=== PATIENT | female | born 1930 | race Caucasian/White ===

== ENCOUNTER → 2018-09-09 | Outpatient (CLI) | payer MEDICARE ==
--- NOTE | 2018-09-12 10:02 | MM ---
Reason for exam: screening (asymptomatic). Last mammogram was performed 1 year ago. History: Patient is postmenopausal and has history of other cancer at age 75. Took estrogen for 18 years beginning at age 55. MG Screening Mammo w CAD Bilateral CC and MLO view(s) were taken. Prior study comparison: September 06, 2017, bilateral MG screening mammo w CAD. September 05, 2016, bilateral MG screening mammo w CAD. The breast tissue is heterogeneously dense. This may lower the sensitivity of mammography. There are benign appearing bilateral calcifications. There is a focal asymmetry in the central outer middle depth of the left breast which will require additional images. ASSESSMENT: Incomplete: need additional imaging evaluation, BI-RAD 0 RECOMMENDATION: Special view mammogram of the left breast. If lesion persists on supplemental views, image directed ultrasound is recommended. [facility] will attempt to contact patient to return for supplemental views and ultrasound if indicated.
== END | disposition home or self-care (01) ==
LOC: RADMAMWWP 13:14
PROVIDERS: ATTEND Family Medicine
DX: Z12.31 Encounter for screening mammogram for malignant neoplasm of breast (principal)
CPT/HCPCS: 77067

== ENCOUNTER → 2018-09-17 | Outpatient (CLI) | payer MEDICARE ==
--- NOTE | 2018-09-18 08:11 | MM ---
Reason for exam: additional evaluation requested from abnormal screening. Last mammogram was performed less than 1 month ago. History: Patient is postmenopausal and has history of other cancer at age 75. Took estrogen for 18 years beginning at age 55. Physical Findings: Nurse did not find any significant physical abnormalities on exam. MG 3D Work Up W/Cad LT Spot compression CC, spot compression ML, and LM view(s) were taken of the left breast. Prior study comparison: September 09, 2018, bilateral MG screening mammo w CAD. September 06, 2017, bilateral MG screening mammo w CAD. Finding: There is an equal density (isodense), obscured round mass located 5 cm from the nipple in the 3 o'clock middle position of the left breast. New finding since September 09, 2018 and September 06, 2017. These results were verbally communicated with the patient and result sheet given to the patient on 09/17/18. ASSESSMENT: Incomplete: need additional imaging evaluation, BI-RAD 0 RECOMMENDATION: Ultrasound of the left breast.
--- NOTE | 2018-09-18 08:12 | USB ---
Reason for exam: additional evaluation requested from abnormal screening. History: Patient is postmenopausal and has history of other cancer at age 75. Took estrogen for 18 years beginning at age 55. US Breast Workup Limited LT Left limited breast ultrasound including focal area of concern, retroareolar and axilla demonstrates a 0.4 x 0.4 x 0.3cm node at 3 o'clock and an axilla node. These results were verbally communicated with the patient and result sheet given to the patient on 09/17/18. ASSESSMENT: Benign, BI-RAD 2 RECOMMENDATION: Return to routine screening mammogram schedule for both breasts.
== END | disposition home or self-care (01) ==
LOC: RADMAMWWP 14:13
PROVIDERS: ATTEND Family Medicine
DX: R92.8 Other abnormal and inconclusive findings on diagnostic imaging of breast (principal)
CPT/HCPCS: 77065; 76642; G0279; 77061

== ENCOUNTER 2019-01-22 16:40 | Emergency (ER) | payer MEDICARE ==
[2019-01-22 16:49] VITALS: RESP 18; TEMP 98.1
[2019-01-22] MEDS ORDERED: MORPHINE SULFATE 2 MG/ML SYRINGE IVP STA (17:30)
--- NOTE | 2019-01-22 17:39 | ED ---
General Adult HPI - General Chief complaint: Fall Stated complaint: fall, shoulder pain Time Seen by Provider: 01/22/19 17:06 Source: patient, family, EMS, RN notes reviewed Mode of arrival: EMS Limitations: no limitations - History of Present Illness Initial comments: Chief complaint history of present illness this is an 88-year-old female who reports that she was on a treadmill. She wanted turn the speed of the treadmill down but she accidentally turned it up. She fell. He complains of pain from the right shoulder to her right wrist. She also presents with a swollen nose and mild epistaxis. She denies any head or neck pain or injury otherwise. Alert and oriented. - Related Data Home Medications Medication Instructions Recorded Confirmed ALPRAZolam 0.5 mg PO HS 03/23/15 01/22/19 Ascorbic Acid [Vitamin C] 500 mg PO DAILY 03/23/15 01/22/19 Aspirin 81 mg PO DAILY 03/23/15 01/22/19 Calcium Carbonate/Vitamin D3 1 cap PO DAILY 03/23/15 01/22/19 [Calcium 600 + Vit D Tablet] Cinnamon Bark [Cinnamon] 1,000 mg PO DAILY 03/23/15 01/22/19 Levothyroxine Sodium [Levoxyl] 75 mcg PO QAM 03/23/15 01/22/19 Metoprolol Tartrate 50 mg PO BID 03/23/15 01/22/19 Multivitamin with Iron [Daily 1 tab PO DAILY 03/23/15 01/22/19 Multivitamin with Iron] [place]-3 Fatty Acids/Fish Oil [Fish 1 cap PO DAILY 03/23/15 01/22/19 Oil 1,000 mg Softgel] Simvastatin 10 mg PO DAILY 03/23/15 01/22/19 amLODIPine BESYLATE [Amlodipine 5 mg PO QAM 03/23/15 01/22/19 Besylate] rOPINIRole HCL 0.5 mg PO DAILY 03/23/15 01/22/19 Ergocalciferol [Vitamin D2] 50,000 unit PO QMONTH 04/06/16 01/22/19 Ferrous Sulfate [Feosol] 325 mg PO DAILY 04/06/16 01/22/19 Furosemide [Lasix] 20 mg PO QAM 04/06/16 01/22/19 Omeprazole 20 mg PO 04/06/16 01/22/19 Allergies Allergy/AdvReac Type Severity Reaction Status Date / Time nitrofurantoin Allergy Rash/Hives Verified 01/22/19 18:09 [From Macrobid] nitrofurantoin Allergy Rash/Hives Verified 01/22/19 18:09 macrocrystalline [From Macrobid] adhesive AdvReac tears skin Verified 01/22/19 18:09 isosorbide AdvReac Rash/Hives Verified 01/22/19 18:09 mepivacaine HCl AdvReac Unknown Verified 01/22/19 18:09 [From Carbocaine] ofloxacin [From Floxin] AdvReac Hallucinati Verified 01/22/19 18:09 ons Review of Systems ROS Statement: Those systems with pertinent positive or pertinent negative responses have been documented in the HPI. Review of systems. Patient denies headache or neck pain she has a bruised nose looks like she had small amount of epistaxis. Denies chest pain shortness breath GI/ problems. Denies any neuro deficits. She does have a history of dementia. Patient is not on any blood thinners. Patient has pain to her right shoulder and right wrist area. The patient received morphine en route. And she received 2 mg morphine IV in the emergency room. All systems are reviewed. The patient's past medical problems significant for angina, CHF, diet-controlled diabetes, hyperlipidemia, hypertension, dementia, osteoarthritis, chronic renal disease, fragile skin. The patient's surgeries include appendectomy, 3 cardiac stents, hysterectomy, bilateral hips replaced. The patient's ALLERGIES include nitrofurantoin, adhesive, isosorbide, mepivacaine and ofloxacin. Nonsmoker nondrinker. Family history noncontributory ROS Other: All systems not noted in ROS Statement are negative. Past Medical History Past Medical History: Coronary Artery Disease (CAD), Cancer, Chest Pain / Angina, Heart Failure, Diabetes Mellitus, Hyperlipidemia, Hypertension, Memory Impairment, Osteoarthritis (OA), Renal Disease, Skin Disorder Additional Past Medical History / Comment(s): Diabetes type II-diet controlled, fragile skin, chronic kidney disease being monitored, sciatica, Giant Cell Ateritis, anemia, peripheral edema, skin cancer with removal, hypothyroid, RLS, DJD, osteopenia, some urinary incontinence. History of Any Multi-Drug Resistant Organisms: None Reported Past Surgical History: Appendectomy, Heart Catheterization With Stent, Hysterectomy, Joint Replacement, Orthopedic Surgery Additional Past Surgical History / Comment(s): 04/18/16 Total L hip arthroplasty anterior approach. Other surgical hx: Cataract Surgery maryam eyes, skin ca removed, 2010 heart stents x 3, RAÚL, temporal artery bx, total R hip arthroplasty, skin ca removal. Past Anesthesia/Blood Transfusion Reactions: No Reported Reaction Additional Past Anesthesia/Blood Transfusion Reaction / Comment(s): Pt states she has received blood in the past without reaction. Date of Last Stent Placement:: 2009 Past Psychological History: No Psychological Hx Reported Smoking Status: Never smoker Past Alcohol Use History: None Reported Past Drug Use History: None Reported - Past Family History Mother Family Medical History: CVA/TIA Additional Family Medical History / Comment(s): Mother of a CVA at the age of 83 yrs. Father Additional Family Medical History / Comment(s): 80's General Exam - General Exam Comments Initial Comments: General: The patient is awake and alert, patient accidentally turned up to speed of the treadmill that she was on causing her to fall. No apparent loss of consciousness. Family was at her side shortly thereafter. Vital signs shows temperature 98.1 pulse 59 respiratory rate 18 pulse ox 94% room air blood pressure 178/74. Eye: Pupils are equal, round and reactive to light, extra-ocular movements are intact; there is normal conjunctiva bilaterally. No signs of icterus. Ears, nose, mouth and throat: There are moist mucous membranes and no oral lesions. Small amount of epistaxis with mild ecchymosis to the bridge of the patient's nose. No evidence of any septal hematoma. Neck: The neck is supple, there is no tenderness, no pain with palpation or movement. Cardiovascular: There is a regular rate and rhythm. No murmur, rub or gallop is appreciated. Respiratory: Lungs are clear to auscultation, respirations are non-labored, breath sounds are equal. No wheezes, stridor, rales, or rhonchi. Gastrointestinal: Soft, non-distended, non-tender abdomen without masses or organomegaly noted. There is no rebound or guarding present. No CVA tenderness. Bowel sounds are unremarkable. Back: There is no tenderness to palpation in the midline. Musculoskeletal: Patient presents with complaint of pain to her right shoulder through the right arm. Range of motion is decreased secondary to pain. Patient had a sling applied by EMS. Neurovascular status to hands intact. No open wounds are noted. X-rays are pending. Neurological: CN II-XII intact, There are no obvious motor or sensory deficits. Full trauma exam from head to toe was performed. Her complaints are to her right arm and forearm. Especially to her right shoulder. Patient does have dementia Skin: Skin is warm and dry and no rashes or lesions are noted. Psychiatric: Cooperative, dementia Limitations: no limitations Course Vital Signs 01/22/19 01/22/19 01/22/19 16:42 18:20 19:21 Temperature 98.1 F Pulse Rate 59 L 76 77 Respiratory 18 18 18 Rate Blood Pressure 178/74 160/85 148/74 O2 Sat by Pulse 94 L 98 95 Oximetry 01/22/19 20:24 Temperature Pulse Rate 75 Respiratory 18 Rate Blood Pressure 152/90 O2 Sat by Pulse 94 L Oximetry Medical Decision Making - Medical Decision Making Medical decision making; this is an 88-year-old female here with family. The patient was on her treadmill. She states she accidentally turned it up faster rather than slower and fell. Resulting in a dislocated right shoulder. Patient also had an epistaxis with some ecchymosis to the bridge of her nose. There was no apparent loss of consciousness. The patient received pain medication via ambulance on the way in. She received 2 mg of morphine as well as IV Zofran because she became nauseated while in emergency room. Neurologically grossly intact no focal or lateralizing findings. No complaint of numbness or tingling to the hands. The patient is on aspirin but no other blood thinners. The patient's CT of the brain and cervical spine was done ;cerebral atrophy, no acute intracranial abnormality. Spondylotic changes in the vertebral spine. No fracture seen. Subluxation deformity of the c4 on c5 vertebral body as interpreted by Dr. Alonso. No old x-rays or CTs of the cervical spine are available to us for comparison. Strong possibility of severe degenerative changes in the cervical spine. Patient had no complaint of neck pain but she was still placed in soft collar. [place] collar is too big. Postreduction x-ray of the right shoulder shows the shoulder to be in the proper position. Radiograph of the forearm shows no evidence of acute fracture to the forearm or wrist. Awaiting radiologist's final impression I discussed the case with family. Inasmuch as we do not have a baseline for the amount of degenerative changes and subluxation she had prior to today's fall, the patient be evaluated by neurosurgery. I spoke with Dr. Beltran at the [facility] emergency room except the patient for transfer further evaluation. The patient will be transferred via ambulance. On emergency room the patient did vomit some coffee ground material. She did have epistaxis. Unknown if she swallowed blood from this or if she had pre- existing stomach problem. When asked if she has had black stool lately she said she has. She also states she's been on iron tablets. This was also mention advised to talk with Dr. Beltran. Emergency the patient received IV Protonix Disposition Clinical Impression: Dislocation of right shoulder joint, Nasal fracture, Cervical subluxation Disposition: OTHER INSTITUTION NOT DEFINED Condition: Serious Is patient prescribed a controlled substance at d/c from ED?: No Referrals: Giovanni Luke MD [Primary Care Provider] - 1-2 days Time of Disposition: 01:20 - Out of Hospital Transfer - Req. Specs Out of Hospital Transfer - Requested Specifics: Other Emergency Center ([facility])
[2019-01-22] MEDS ORDERED: ONDANSETRON 4 MG/2 ML VIAL IVP STA (18:14)
--- NOTE | 2019-01-22 18:31 | CT ---
EXAMINATION TYPE: CT brain bao farrar DATE OF EXAM: 01/22/2019 COMPARISON: None HISTORY: Fall from treadmill. Bruising and swelling to nose. CT DLP: 1320.5 mGycm Automated exposure control for dose reduction was used. TECHNIQUE: CT scan of the head and cervical spine are performed without contrast. FINDINGS: There is cerebral cortical atrophy. There is no mass effect nor midline shift. There is n o sign of intracranial hemorrhage. The calvarium is intact. There is a 5 mm anterior subluxation of C4 in relation to C5. There is also similar 4 mm retrolisthes is at C5-6. There is degenerative disc space narrowing from C4 to C7. There is multilevel hypertrophi c facet arthropathy. I see no acute fracture of the cervical spine. Skull base appears intact. IMPRESSION: Cerebral atrophy. No acute intracranial abnormality. Spondylotic changes in the cervical spine. No fracture seen. Subluxation deformity of the C5 vertebra l body.
--- NOTE | 2019-01-22 18:32 | XR ---
EXAMINATION TYPE: XR humerus RT DATE OF EXAM: 01/22/2019 COMPARISON: NONE HISTORY: Pain after fall TECHNIQUE: 4 views FINDINGS: There is anterior dislocation of the humeral head. I see no fracture line. Elbow joint appe ars intact. IMPRESSION: Anterior dislocation of the shoulder joint.
--- NOTE | 2019-01-22 19:27 | XR ---
EXAMINATION TYPE: XR forearm RT DATE OF EXAM: 01/22/2019 COMPARISON: NONE HISTORY: Pain. TECHNIQUE: Single view FINDINGS: A single view of the right forearm shows intact radius and ulna. Elbow joint and wrist join t appear grossly intact. I see no fracture. IMPRESSION: No fracture seen. Limited exam.
--- NOTE | 2019-01-22 19:30 | XR ---
EXAMINATION TYPE: XR shoulder limited RT DATE OF EXAM: 01/22/2019 COMPARISON: Today HISTORY: Postreduction TECHNIQUE: Single view FINDINGS: There is apparent anatomic reduction of the glenohumeral joint. No fracture line seen. Ther e is osteopenia. IMPRESSION: Anatomic reduction.
--- NOTE | 2019-01-22 19:35 | XR ---
EXAMINATION TYPE: XR wrist complete RT DATE OF EXAM: 01/22/2019 COMPARISON: NONE HISTORY: Wrist pain TECHNIQUE: 4 views FINDINGS: The carpal bones are intact. There is no evidence of fracture nor dislocation. There is ruben e narrowing and spurring at the first carpometacarpal joint. IMPRESSION: Osteoarthritis at the base of the thumb. No fracture seen.
[2019-01-22 20:26] VITALS: BP 152/90; PULSE 75
--- NOTE | 2019-01-23 04:49 | CDI ---
Documentation Clarification OP Dear Dr. Pablito Siu Please provide complete shoulder reduction note. Thank you, Matt Fry Animal Control Specialist If you have any questions, please contact Configuration Management Advisor at [phone] [facility]
== END 2019-01-22 20:50 | disposition other institution (70) ==
LOC: EC 16:40
DX: S43.004A Unspecified dislocation of right shoulder joint, initial encounter (principal); S02.2XXA Fracture of nasal bones, initial encounter for closed fracture; S13.150A Subluxation of C4/C5 cervical vertebrae, initial encounter; G31.9 Degenerative disease of nervous system, unspecified; M47.812 Spondylosis without myelopathy or radiculopathy, cervical region; I25.10 Atherosclerotic heart disease of native coronary artery without angina pectoris; I13.0 Hypertensive heart and chronic kidney disease with heart failure and stage 1 through stage 4 chronic kidney disease, or unspecified chronic kidney disease; N18.9 Chronic kidney disease, unspecified; I50.9 Heart failure, unspecified; D63.1 Anemia in chronic kidney disease; E78.5 Hyperlipidemia, unspecified; M19.90 Unspecified osteoarthritis, unspecified site; E03.9 Hypothyroidism, unspecified; G25.81 Restless legs syndrome; Z85.828 Personal history of other malignant neoplasm of skin; Z95.5 Presence of coronary angioplasty implant and graft; Z96.643 Presence of artificial hip joint, bilateral; Z79.82 Long term (current) use of aspirin; Z79.890 Hormone replacement therapy; Z79.899 Other long term (current) drug therapy; Z88.1 Allergy status to other antibiotic agents; Z91.048 Other nonmedicinal substance allergy status; Z88.8 Allergy status to other drugs, medicaments and biological substances; Z88.4 Allergy status to anesthetic agent; W17.89XA Other fall from one level to another, initial encounter; Y93.A1 Activity, exercise machines primarily for cardiorespiratory conditioning
CPT/HCPCS: 99285; 23650; 96374; 96375; 73020; 73060; 73090; 73110; 72125; 70450; J2405; J2270

== ENCOUNTER 2019-03-13 11:30 | Inpatient (IN) | payer MEDICARE ==
[2019-03-13] MEDS ORDERED: AZITHROMYCIN 500 MG in SODIUM CHLORIDE 0.9% 250 ML IVPB STA (12:24)
[2019-03-13] MEDS ORDERED: IPRATROPIUM-ALBUTEROL 3 ML NEB INHALATION STA (12:24)
--- NOTE | 2019-03-13 12:27 | ED ---
General Adult HPI - General Chief complaint: Shortness of Breath Stated complaint: Cough, fever Time Seen by Provider: 03/13/19 12:11 Source: patient, RN notes reviewed Mode of arrival: wheelchair Limitations: no limitations - History of Present Illness Initial comments: 88-year-old female presenting with 1 week history of cough and dyspnea. Patient's symptoms have progressed over the past one week. She initially just had a mild dry cough. She was seen by her primary care physician, suspected seasonal ALLERGIES. Placed on antitussive agent and Claritin. Symptoms have failed to improve. Today patient developed fever. Cough continues to be no nproductive. No history of COPD. She has previous history of congestive heart failure. Denies chest pain. Denies abdominal pain nausea or vomiting. - Related Data Home Medications Medication Instructions Recorded Confirmed Ascorbic Acid [Vitamin C] 500 mg PO DAILY 03/23/15 03/13/19 Aspirin 81 mg PO DAILY 03/23/15 03/13/19 Calcium Carbonate/Vitamin D3 1 cap PO DAILY 03/23/15 03/13/19 [Calcium 600 + Vit D Tablet] Cinnamon Bark [Cinnamon] 1,000 mg PO DAILY 03/23/15 03/13/19 Levothyroxine Sodium [Levoxyl] 75 mcg PO QAM 03/23/15 03/13/19 Metoprolol Tartrate 50 mg PO BID 03/23/15 03/13/19 Multivitamin with Iron [Daily 1 tab PO DAILY 03/23/15 03/13/19 Multivitamin with Iron] [place]-3 Fatty Acids/Fish Oil [Fish 1 cap PO DAILY 03/23/15 03/13/19 Oil 1,000 mg Softgel] Simvastatin 10 mg PO DAILY 03/23/15 03/13/19 amLODIPine BESYLATE [Amlodipine 5 mg PO QAM 03/23/15 03/13/19 Besylate] rOPINIRole HCL 0.5 mg PO DAILY 03/23/15 03/13/19 Ergocalciferol [Vitamin D2] 50,000 unit PO QMONTH 04/06/16 03/13/19 Ferrous Sulfate [Feosol] 325 mg PO DAILY 04/06/16 03/13/19 Furosemide [Lasix] 20 mg PO QAM 04/06/16 03/13/19 Omeprazole 20 mg PO HS 04/06/16 03/13/19 ALPRAZolam [Xanax] 0.5 mg PO DAILY PRN 03/13/19 03/13/19 Benzonatate [Tessalon Perles] 100 mg PO TID 03/13/19 03/13/19 Loratadine [Claritin] 10 mg PO BID 03/13/19 03/13/19 Allergies Allergy/AdvReac Type Severity Reaction Status Date / Time nitrofurantoin Allergy Rash/Hives Verified 03/13/19 12:29 [From Macrobid] nitrofurantoin Allergy Rash/Hives Verified 03/13/19 12:29 macrocrystalline [From Macrobid] adhesive AdvReac tears skin Verified 03/13/19 12:29 ibuprofen [From Motrin] AdvReac Vomiting Verified 03/13/19 12:29 isosorbide AdvReac Rash/Hives Verified 03/13/19 12:29 mepivacaine HCl AdvReac Unknown Verified 03/13/19 12:29 [From Carbocaine] morphine AdvReac Nausea & Verified 03/13/19 12:29 Vomiting ofloxacin [From Floxin] AdvReac Hallucinati Verified 03/13/19 12:29 ons Review of Systems ROS Statement: Those systems with pertinent positive or pertinent negative responses have been documented in the HPI. ROS Other: All systems not noted in ROS Statement are negative. Past Medical History Past Medical History: Coronary Artery Disease (CAD), Cancer, Chest Pain / Angina, Heart Failure, Diabetes Mellitus, Hyperlipidemia, Hypertension, Memory Impairment, Osteoarthritis (OA), Renal Disease, Skin Disorder Additional Past Medical History / Comment(s): Diabetes type II-diet controlled, fragile skin, chronic kidney disease being monitored, sciatica, Giant Cell Ateritis, anemia, peripheral edema, skin cancer with removal, hypothyroid, RLS, DJD, osteopenia, some urinary incontinence. History of Any Multi-Drug Resistant Organisms: None Reported Past Surgical History: Appendectomy, Heart Catheterization With Stent, Hysterectomy, Joint Replacement, Orthopedic Surgery Additional Past Surgical History / Comment(s): 04/18/16 Total L hip arthroplasty anterior approach. Other surgical hx: Cataract Surgery maryam eyes, skin ca removed, 2009 heart stents x 3, RAÚL, temporal artery bx, total R hip arthroplasty, skin ca removal. Past Anesthesia/Blood Transfusion Reactions: No Reported Reaction Additional Past Anesthesia/Blood Transfusion Reaction / Comment(s): Pt states she has received blood in the past without reaction. Date of Last Stent Placement:: 2009 Past Psychological History: No Psychological Hx Reported Smoking Status: Never smoker Past Alcohol Use History: None Reported Past Drug Use History: None Reported - Past Family History Mother Family Medical History: CVA/TIA Additional Family Medical History / Comment(s): Mother of a CVA at the age of 83 yrs. Father Additional Family Medical History / Comment(s): 80's General Exam Limitations: no limitations General appearance: alert, in no apparent distress Head exam: Present: atraumatic, normocephalic Eye exam: Present: normal appearance, PERRL ENT exam: Present: normal exam Neck exam: Present: normal inspection. Absent: tenderness Respiratory exam: Present: respiratory distress, rales, rhonchi, decreased breath sounds Cardiovascular Exam: Present: regular rate, normal rhythm GI/Abdominal exam: Present: soft. Absent: distended, tenderness, guarding Extremities exam: Present: normal inspection, normal capillary refill. Absent: pedal edema, calf tenderness Neurological exam: Present: alert, oriented X3. Absent: motor sensory deficit Psychiatric exam: Present: normal affect, normal mood Skin exam: Present: warm, dry, intact. Absent: cyanosis, diaphoretic Course Vital Signs 03/13/19 03/13/19 03/13/19 12:02 12:42 12:50 Temperature 101.7 F H Pulse Rate 97 96 100 Respiratory 22 Rate Blood Pressure 145/77 O2 Sat by Pulse 91 L Oximetry 03/13/19 03/13/19 03/13/19 13:30 14:00 14:30 Temperature 101.5 F H Pulse Rate 93 95 92 Respiratory 22 24 22 Rate Blood Pressure 152/76 124/63 124/63 O2 Sat by Pulse 98 95 96 Oximetry EKG Findings - EKG Comments: EKG Findings:: EKG: Sinus rhythm with PAC, X deviation, right bundle branch block, rate of 76, AL interval 164, QRS duration 138, QTC 508, no ST segment elevation, there is interval change compared to previous EKG in 2016. Medical Decision Making - Medical Decision Making 88 yo female presenting for evaluation of cough and dyspnea. No chest pain. She does have fever on initial evaluation. She has diffuse rhonchi and crackles on lung auscultation. Chest x-rays obtained, negative for focal pneumonia. She has normal white blood cell count 10.6, hemoglobin 10.7, creatinine 1.16, troponin is mildly elevated 0.068, patient does have previous history of troponin elevation, this may be related to demand ischemia secondary to influenza versus congestive heart failure, doubt acute OR at this time. Patient is influenza A positive. She started on Tamiflu. She will be admitted for symptomatic treatment of reactive airway disease. Troponin level will be trended. Case discussed with admitting physician. - Lab Data Result diagrams: 03/13/19 13:00 03/13/19 13:00 Lab Results 03/13/19 03/13/19 03/13/19 Range/Units 13:00 13:00 13:00 WBC 6.6 (3.8-10.6) k/uL RBC 3.33 L (3.80-5.40) m/uL Hgb 10.7 L (11.4-16.0) gm/dL Hct 31.8 L (34.0-46.0) % MCV 95.4 (80.0-100.0) fL MCH 32.2 (25.0-35.0) pg MCHC 33.7 (31.0-37.0) g/dL RDW 12.7 (11.5-15.5) % Plt Count 147 L (150-450) k/uL Neutrophils % 75 % Lymphocytes % 15 % Monocytes % 6 % Eosinophils % 0 % Basophils % 0 % Neutrophils # 4.9 (1.3-7.7) k/uL Lymphocytes # 1.0 (1.0-4.8) k/uL Monocytes # 0.4 (0-1.0) k/uL Eosinophils # 0.0 (0-0.7) k/uL Basophils # 0.0 (0-0.2) k/uL PT (9.0-12.0) sec INR (<1.2) APTT (22.0-30.0) sec Sodium 136 L (137-145) mmol/L Potassium 4.0 (3.5-5.1) mmol/L Chloride 101 (98-107) mmol/L Carbon Dioxide 24 (22-30) mmol/L Anion Gap 11 mmol/L BUN 29 H (7-17) mg/dL Creatinine 1.16 H (0.52-1.04) mg/dL Est GFR (CKD-EPI)AfAm 49 (>60 ml/min/1.73 sqM) Est GFR (CKD-EPI)NonAf 42 (>60 ml/min/1.73 sqM) Glucose 155 H (74-99) mg/dL Plasma Lactic Acid Narayan (0.7-2.0) mmol/L Calcium 8.6 (8.4-10.2) mg/dL Magnesium 1.7 (1.6-2.3) mg/dL Total Bilirubin 0.5 (0.2-1.3) mg/dL AST 42 H (14-36) U/L ALT 43 (9-52) U/L Alkaline Phosphatase 55 (38-126) U/L Troponin I (0.000-0.034) ng/mL NT-Pro-B Natriuret Pep pg/mL Total Protein 5.8 L (6.3-8.2) g/dL Albumin 3.8 (3.5-5.0) g/dL Influenza Type A RNA Detected H (Not Detectd) Influenza Type B (PCR) Not Detected (Not Detectd) 03/13/19 03/13/19 03/13/19 Range/Units 13:00 13:00 13:00 WBC (3.8-10.6) k/uL RBC (3.80-5.40) m/uL Hgb (11.4-16.0) gm/dL Hct (34.0-46.0) % MCV (80.0-100.0) fL MCH (25.0-35.0) pg MCHC (31.0-37.0) g/dL RDW (11.5-15.5) % Plt Count (150-450) k/uL Neutrophils % % Lymphocytes % % Monocytes % % Eosinophils % % Basophils % % Neutrophils # (1.3-7.7) k/uL Lymphocytes # (1.0-4.8) k/uL Monocytes # (0-1.0) k/uL Eosinophils # (0-0.7) k/uL Basophils # (0-0.2) k/uL PT 9.7 (9.0-12.0) sec INR 0.9 (<1.2) APTT 23.7 (22.0-30.0) sec Sodium (137-145) mmol/L Potassium (3.5-5.1) mmol/L Chloride (98-107) mmol/L Carbon Dioxide (22-30) mmol/L Anion Gap mmol/L BUN (7-17) mg/dL Creatinine (0.52-1.04) mg/dL Est GFR (CKD-EPI)AfAm (>60 ml/min/1.73 sqM) Est GFR (CKD-EPI)NonAf (>60 ml/min/1.73 sqM) Glucose (74-99) mg/dL Plasma Lactic Acid Narayan 1.1 (0.7-2.0) mmol/L Calcium (8.4-10.2) mg/dL Magnesium (1.6-2.3) mg/dL Total Bilirubin (0.2-1.3) mg/dL AST (14-36) U/L ALT (9-52) U/L Alkaline Phosphatase (38-126) U/L Troponin I (0.000-0.034) ng/mL NT-Pro-B Natriuret Pep 3740 pg/mL Total Protein (6.3-8.2) g/dL Albumin (3.5-5.0) g/dL Influenza Type A RNA (Not Detectd) Influenza Type B (PCR) (Not Detectd) 03/13/19 Range/Units 13:00 WBC (3.8-10.6) k/uL RBC (3.80-5.40) m/uL Hgb (11.4-16.0) gm/dL Hct (34.0-46.0) % MCV (80.0-100.0) fL MCH (25.0-35.0) pg MCHC (31.0-37.0) g/dL RDW (11.5-15.5) % Plt Count (150-450) k/uL Neutrophils % % Lymphocytes % % Monocytes % % Eosinophils % % Basophils % % Neutrophils # (1.3-7.7) k/uL Lymphocytes # (1.0-4.8) k/uL Monocytes # (0-1.0) k/uL Eosinophils # (0-0.7) k/uL Basophils # (0-0.2) k/uL PT (9.0-12.0) sec INR (<1.2) APTT (22.0-30.0) sec Sodium (137-145) mmol/L Potassium (3.5-5.1) mmol/L Chloride (98-107) mmol/L Carbon Dioxide (22-30) mmol/L Anion Gap mmol/L BUN (7-17) mg/dL Creatinine (0.52-1.04) mg/dL Est GFR (CKD-EPI)AfAm (>60 ml/min/1.73 sqM) Est GFR (CKD-EPI)NonAf (>60 ml/min/1.73 sqM) Glucose (74-99) mg/dL Plasma Lactic Acid Narayan (0.7-2.0) mmol/L Calcium (8.4-10.2) mg/dL Magnesium (1.6-2.3) mg/dL Total Bilirubin (0.2-1.3) mg/dL AST (14-36) U/L ALT (9-52) U/L Alkaline Phosphatase (38-126) U/L Troponin I 0.068 H* (0.000-0.034) ng/mL NT-Pro-B Natriuret Pep pg/mL Total Protein (6.3-8.2) g/dL Albumin (3.5-5.0) g/dL Influenza Type A RNA (Not Detectd) Influenza Type B (PCR) (Not Detectd) Disposition Clinical Impression: Congestive heart failure, Influenza A, Elevated troponin I level, Reactive airway disease Disposition: ADMITTED IP TO THIS HOSP Condition: Stable Is patient prescribed a controlled substance at d/c from ED?: No Decision to Admit Reason: Admit from EC Decision Date: 03/13/19 Decision Time: 14:43
[2019-03-13 13:27] LABS: Basophils % (A) 0 %; Eosinophils % (A) 0 %; HCT 31.8 % (34.0-46.0); HGB 10.7 gm/dL (11.4-16.0); Lymphocytes % (A) 15 %; MCH 32.2 pg (25.0-35.0); MCHC 33.7 g/dL (31.0-37.0); MCV 95.4 fL (80.0-100.0); Mean Platelet Volume 7.5; Monocytes # (A) 0.4 k/uL (0-1.0); Monocytes % (A) 6 %; Neutrophils # (A) 4.9 k/uL (1.3-7.7); Neutrophils % (A) 75 %; Platelet Count 147 k/uL (150-450); RBC 3.33 m/uL (3.80-5.40); RDW 12.7 % (11.5-15.5); WBC 6.6 k/uL (3.8-10.6)
[2019-03-13 13:34] LABS: INR 0.9 (<1.2); Partial Thromboplastin Time 23.7 sec (22.0-30.0); Prothrombin Time 9.7 sec (9.0-12.0)
[2019-03-13 13:37] LABS: Albumin 3.8 g/dL (3.5-5.0); Calcium 8.6 mg/dL (8.4-10.2); Magnesium 1.7 mg/dL (1.6-2.3); Total Bilirubin 0.5 mg/dL (0.2-1.3); Total Protein 5.8 g/dL (6.3-8.2)
--- NOTE | 2019-03-13 13:40 | XR ---
EXAMINATION TYPE: XR chest 2V DATE OF EXAM: 03/13/2019 COMPARISON: Prior chest x-ray 06/04/2016 HISTORY: Difficulty breathing, fever and cough TECHNIQUE: Frontal and lateral views of the chest are obtained. FINDINGS: Lung volumes are somewhat lower. Heart size is stable accounting for patient rotation towa rd the left. There is no evident pneumothorax or pleural effusion. Arthropathy is present within the shoulders. The aorta is dense. Coronary artery stent, calcification suspected. No evident airspace di sease, pneumothorax, or pleural effusion. Prominent lung volumes are noted. IMPRESSION: Coronary artery disease. Expiratory rotated exam. No acute abnormalities evident.
[2019-03-13] MEDS ORDERED: ACETAMINOPHEN TAB 500 MG TAB PO STA (14:09)
[2019-03-13] MEDS ORDERED: OSELTAMIVIR 75 MG CAP PO STA (14:11)
[2019-03-13] MEDS ORDERED: OSELTAMIVIR 60 MG/10 ML ORAL SYRINGE PO STA (14:15)
[2019-03-13] MEDS ORDERED: IPRATROPIUM-ALBUTEROL 3 ML NEB INHALATION PRN (14:44)
[2019-03-13] MEDS: IPRATROPIUM-ALBUTEROL 3 ML NEB INHALATION SCH ×2 (17:23→19:58)
[2019-03-13 20:43] LABS: Glucose,Whole Blood 195 mg/dL (75-99)
[2019-03-13] MEDS ORDERED: OSELTAMIVIR 75 MG CAP PO SCH (21:00)
[2019-03-13] MEDS ORDERED: BENZONATATE 100 MG CAP PO PRN (22:00)
[2019-03-13] MEDS: INSULIN ASPART (NovoLOG) 100 UNIT/ML VIAL SQ SCH (22:04)
[2019-03-13] MEDS: SODIUM CHLORIDE 0.9% 1,000 ML IV SCH (22:04)
--- NOTE | 2019-03-13 23:23 | P.HPIM ---
History of Present Illness H&P Date: 03/13/19 Chief Complaint: Shortness of breath Patient is a 88-year-old female with a known history of coronary artery disease with history of stent placement, hypertension, CHF, diabetes type 2 diet- controlled, hyperlipidemia, memory impairment and history of giant cell arteritis came to the hospital with the complaints of cough and congestion for the past 1 week. Patient has been having worsening symptoms for the past 1 week. Cough is mostly dry. Patient was seen by her primary care physician and suspected due to seasonal ALLERGIES and was started on Tessalon Perles and Cla ritin. Today patient developed fever at home and was brought to the hospital by her family. No history of smoking or COPD in the past. Patient does have a history of CHF. Patient was also found have slightly elevated troponin level. Otherwise denied any complaints of chest pain. No leg swelling. No nausea vomiting or abdominal pain. No diarrhea. Patient's was sick about one week ago with upper respiratory infections. No headache or dizziness or lightheadedness. Patient is somewhat poor historian. Chest x-ray showed no acute abnormalities noted EKG showed normal sinus rhythm with atrial arrhythmia. Influenza A+ Troponin 0.068 BUN 29 creatinine 1.16. No leukocytosis. Review of Systems Constitutional: Patient denies any fever or chills . No generalized weakness or weight loss. Abdomen: Patient denied nausea vomiting and diarrhea and abdominal pain. Cardiovascular: Patient denies any chest pain or short of breath no palpit ations. Respiratory: Cough, Congestion and shortness of breath Neurologic: Patient denied any numbness or tingling headache. Musculoskeletal: Patient denies any complaints of joint swelling or deformity. Skin: Negative Psychiatric: Negative Endocrine: No heat or cold intolerance. No recent weight gain. Genitourinary: No dysuria or hematuria. All other 14 point ROS negative except the above Past Medical History Past Medical History: Coronary Artery Disease (CAD), Cancer, Chest Pain / Angina, Heart Failure, Diabetes Mellitus, Hyperlipidemia, Hypertension, Memory Impairment, Osteoarthritis (OA), Renal Disease, Skin Disorder Additional Past Medical History / Comment(s): Diabetes type II-diet controlled, fragile skin, chronic kidney disease being monitored, sciatica, Giant Cell Ateritis, anemia, peripheral edema, skin cancer with removal, hypothyroid, RLS, DJD, osteopenia, some urinary incontinence. History of Any Multi-Drug Resistant Organisms: None Reported Past Surgical History: Appendectomy, Heart Catheterization With Stent, Hysterectomy, Joint Replacement, Orthopedic Surgery Additional Past Surgical History / Comment(s): 04/18/16 Total L hip arthroplasty anterior approach. Other surgical hx: Cataract Surgery maryam eyes, skin ca removed, 2009 heart stents x 3, RAÚL, temporal artery bx, total R hip arthroplasty, skin ca removal. Past Anesthesia/Blood Transfusion Reactions: No Reported Reaction Additional Past Anesthesia/Blood Transfusion Reaction / Comment(s): Pt states she has received blood in the past without reaction. Date of Last Stent Placement:: 2009 Past Psychological History: No Psychological Hx Reported Additional Psychological History / Comment(s): Pt takes xanax to sleep not for anxiety. Pt resides with her spouse. She uses a walker or a cane to ambulate. She no longer drives-her spouse does or her shilpi will take her to appts. She has a glucometer. Smoking Status: Never smoker Past Alcohol Use History: None Reported Past Drug Use History: None Reported - Past Family History Mother Family Medical History: CVA/TIA Additional Family Medical History / Comment(s): Mother of a CVA at the age of 83 yrs. Father Additional Family Medical History / Comment(s): 80's Medications and Allergies Home Medications Medication Instructions Recorded Confirmed Type Ascorbic Acid [Vitamin C] 500 mg PO DAILY 03/23/15 03/13/19 History Aspirin 81 mg PO DAILY 03/23/15 03/13/19 History Calcium Carbonate/Vitamin D3 1 cap PO DAILY 03/23/15 03/13/19 History [Calcium 600 + Vit D Tablet] Cinnamon Bark [Cinnamon] 1,000 mg PO DAILY 03/23/15 03/13/19 History Levothyroxine Sodium [Levoxyl] 75 mcg PO QAM 03/23/15 03/13/19 History Metoprolol Tartrate 50 mg PO BID 03/23/15 03/13/19 History Multivitamin with Iron [Daily 1 tab PO DAILY 03/23/15 03/13/19 History Multivitamin with Iron] [place]-3 Fatty Acids/Fish Oil [Fish 1 cap PO DAILY 03/23/15 03/13/19 History Oil 1,000 mg Softgel] Simvastatin 10 mg PO DAILY 03/23/15 03/13/19 History amLODIPine BESYLATE [Amlodipine 5 mg PO QAM 03/23/15 03/13/19 History Besylate] rOPINIRole HCL 0.5 mg PO DAILY 03/23/15 03/13/19 History Ergocalciferol [Vitamin D2] 50,000 unit PO QMONTH 04/06/16 03/13/19 History Ferrous Sulfate [Feosol] 325 mg PO DAILY 04/06/16 03/13/19 History Furosemide [Lasix] 20 mg PO QAM 04/06/16 03/13/19 History Omeprazole 20 mg PO HS 04/06/16 03/13/19 History ALPRAZolam [Xanax] 0.5 mg PO DAILY PRN 03/13/19 03/13/19 History Benzonatate [Tessalon Perles] 100 mg PO TID 03/13/19 03/13/19 History Loratadine [Claritin] 10 mg PO BID 03/13/19 03/13/19 History Allergies Allergy/AdvReac Type Severity Reaction Status Date / Time nitrofurantoin Allergy Rash/Hives Verified 03/13/19 12:29 [From Macrobid] nitrofurantoin Allergy Rash/Hives Verified 03/13/19 12:29 macrocrystalline [From Macrobid] adhesive AdvReac tears skin Verified 03/13/19 12:29 ibuprofen [From Motrin] AdvReac Vomiting Verified 03/13/19 12:29 isosorbide AdvReac Rash/Hives Verified 03/13/19 12:29 mepivacaine HCl AdvReac Unknown Verified 03/13/19 12:29 [From Carbocaine] morphine AdvReac Nausea & Verified 03/13/19 12:29 Vomiting ofloxacin [From Floxin] AdvReac Hallucinati Verified 03/13/19 12:29 ons Physical Exam Vitals: Vital Signs Temp Pulse Pulse Resp BP BP Pulse Ox 03/13/19 20:10 80 16 03/13/19 19:58 84 16 03/13/19 18:01 98.9 F 03/13/19 17:33 76 03/13/19 17:30 76 24 107/51 98 03/13/19 17:23 72 03/13/19 16:30 77 22 100/55 95 03/13/19 16:01 98.6 F 89 18 132/64 95 03/13/19 16:00 79 23 104/53 96 03/13/19 15:30 82 24 101/49 94 L 03/13/19 15:00 87 22 134/57 96 03/13/19 14:30 101.5 F H 92 22 124/63 96 03/13/19 14:00 95 24 124/63 95 03/13/19 13:30 93 22 152/76 98 03/13/19 12:50 100 03/13/19 12:42 96 03/13/19 12:02 101.7 F H 97 22 145/77 91 L Intake and Output 03/13/19 03/13/19 03/13/19 06:59 14:59 22:59 Other: Weight 47.627 kg PHYSICAL EXAMINATION: Patient is lying in the bed comfortably, no acute distress, awake alert and oriented.. HEENT: Normocephalic. Neck is supple. Pupils reactive. Nostrils clear. Oral cavity is moist. Ears reveal no drainage. Neck reveals no JVD, carotid bruits, or thyromegaly. CHEST EXAMINATION: Trachea is central. Symmetrical expansion. Bibasilar diminished air entry and scattered rhonchi. CARDIAC: Normal S1, S2 with no gallops. No murmurs ABDOMEN: Soft. Bowel sounds normal. No organomegaly. No abdominal bruits. Extremities: Trace edema. No clubbing or cyanosis Neurologically awake, alert, oriented x2-3 with well-coordinated movements. No focal deficits noted Skin: No rash or skin lesions. Psychiatric: Coperative. Nonsuicidal Musculoskeletal: No joint swelling or deformity. Normal range of motion. Results CBC & Chem 7: 03/13/19 13:00 03/13/19 13:00 Labs: Abnormal Lab Results - Last 24 Hours (Table) 03/13/19 03/13/19 03/13/19 Range/Units 13:00 13:00 13:00 RBC 3.33 L (3.80-5.40) m/uL Hgb 10.7 L (11.4-16.0) gm/dL Hct 31.8 L (34.0-46.0) % Plt Count 147 L (150-450) k/uL Sodium 136 L (137-145) mmol/L BUN 29 H (7-17) mg/dL Creatinine 1.16 H (0.52-1.04) mg/dL Glucose 155 H (74-99) mg/dL POC Glucose (mg/dL) (75-99) mg/dL AST 42 H (14-36) U/L Troponin I (0.000-0.034) ng/mL Total Protein 5.8 L (6.3-8.2) g/dL Influenza Type A RNA Detected H (Not Detectd) 03/13/19 03/13/19 Range/Units 13:00 20:37 RBC (3.80-5.40) m/uL Hgb (11.4-16.0) gm/dL Hct (34.0-46.0) % Plt Count (150-450) k/uL Sodium (137-145) mmol/L BUN (7-17) mg/dL Creatinine (0.52-1.04) mg/dL Glucose (74-99) mg/dL POC Glucose (mg/dL) 195 H (75-99) mg/dL AST (14-36) U/L Troponin I 0.068 H* (0.000-0.034) ng/mL Total Protein (6.3-8.2) g/dL Influenza Type A RNA (Not Detectd) Thrombosis Risk Factor Assmnt - DVT/VTE Prophylaxis DVT/VTE Prophylaxis: Pharmacologic Prophylaxis ordered - Choose All That Apply Each Risk Factor Represents 3 Points: Age 75 years or older Thrombosis Risk Factor Assessment Total Risk Factor Score: 3 Thrombosis Risk Factor Assessment Level: Moderate Risk Assessment and Plan Assessment: cough and congestion due to acute influenza A infection Bronchospasm with reactive airway disease. Possible acute tracheobronchitis Elevated troponin likely demand mismatch Chronic CHF with ejection fraction unknown Coronary artery disease with history of stent placement Diabetes type 2 diet-controlled Hypertension Impairment History of skin cancer Chronic kidney disease stage III History Gaint cell arteritis Hypothyroidism Restless leg syndrome Occasional urinary incontinence Iron deficiency anemia DVT prophylaxis with heparin subcu Plan: Patient be continued on DuoNeb's and prednisone 40 mg daily. Patient was also started on antibiotics in the form of azithromycin. Continue with Tamiflu. Continue with home medications and blood pressure medications as tolerated. Serial troponins. Cardiology was consulted. Further recommendations based on the clinical course. Discussed with her family at bedside in detail and all questions were answered. Prognosis is guarded. Time with Patient: Greater than 30
[2019-03-14] MEDS: ALPRAZolam 0.5 MG TAB PO PRN (03:25)
[2019-03-14 05:38] LABS: Glucose,Whole Blood 119 mg/dL (75-99)
[2019-03-14] MEDS: INSULIN ASPART (NovoLOG) 100 UNIT/ML VIAL SQ SCH ×4 (05:38→20:46)
[2019-03-14] MEDS: LEVOTHYROXINE 75 MCG TAB PO SCH (06:00)
[2019-03-14] MEDS: IPRATROPIUM-ALBUTEROL 3 ML NEB INHALATION SCH ×4 (08:56→19:33)
[2019-03-14] MEDS ORDERED: NON-FORMULARY DRUG (Omega-3 Fatty Acids/Fish Oil [Fish Oil 1,000 Mg Softgel] 1 CAP) PO SCH (09:00)
[2019-03-14] MEDS ORDERED: NON-FORMULARY DRUG (Cinnamon Bark [Cinnamon] 1,000 MG) PO SCH (09:00)
[2019-03-14] MEDS: OSELTAMIVIR 60 MG/10 ML ORAL SYRINGE PO SCH (09:16)
[2019-03-14] MEDS: ASPIRIN 81 MG PO SCH (09:17)
[2019-03-14] MEDS: SODIUM CHLORIDE 0.9% 1,000 ML IV SCH ×2 (09:17→20:47)
[2019-03-14] MEDS: AZITHROMYCIN 500 MG TAB PO SCH (09:17)
[2019-03-14] MEDS: CALCIUM CARB-VIT D 500MG-200UN 1 EACH TAB PO SCH (09:17)
[2019-03-14] MEDS: MULTIVITAMINS, THERA 1 EACH TAB PO SCH (09:17)
[2019-03-14] MEDS: METOPROLOL TARTRATE 50 MG TAB PO SCH ×2 (09:17→20:46)
[2019-03-14] MEDS: ATORVASTATIN 10 MG TAB PO SCH (09:17)
[2019-03-14] MEDS: ASCORBIC ACID 500 MG TAB PO SCH (09:17)
[2019-03-14] MEDS: predniSONE 20 MG TAB PO SCH (09:17)
[2019-03-14] MEDS: FERROUS SULFATE 325 MG TAB PO SCH (09:17)
[2019-03-14] MEDS: HEPARIN SODIUM,PORCINE 5,000 UNIT/ML 1 ML VIAL SQ SCH ×4 (09:17→22:58)
[2019-03-14 11:23] LABS: Glucose,Whole Blood 144 mg/dL (75-99)
[2019-03-14 16:36] LABS: Glucose,Whole Blood 256 mg/dL (75-99)
--- NOTE | 2019-03-14 18:48 | ECHOF ---
Referral Reason:CHF MEASUREMENTS -------- HEIGHT: 152.4 cm WEIGHT: 48.5 kg BP: RVIDd: 3.3 cm (< 3.3) IVSd: 1.1 cm (0.6 - 1.1) LVIDd: 3.8 cm (3.9 - 5.3) LVPWd: 1.4 cm (0.6 - 1.1) IVSs: 1.9 cm LVIDs: 1.8 cm LVPWs: 1.5 cm LAESV Index (A-L): 38.96 ml/m Ao Diam: 2.9 cm (2.0 - 3.7) AV Cusp: 2.2 cm (1.5 - 2.6) LA Diam: 4.0 cm (2.7 - 3.8) MV EXCURSION: 16.659 mm (> 18.000) MV EF SLOPE: 109 mm/s (70 - 150) EPSS: 0.5 cm MV E Raza: 0.53 m/s MV DecT: 178 ms MV A Raza: 0.71 m/s MV E/A Ratio: 0.76 AR PHT: 459 ms RAP: 5.00 mmHg RVSP: 14.52 mmHg FINDINGS -------- Sinus rhythm. This was a technically good study. The left ventricular size is normal. There is mild concentric left ventricular hypertrophy. Overa ll left ventricular systolic function is normal with, an EF between 55 - 60 %. The right ventricle is mildly enlarged. LA is moderately dilated 34-39 ml/m2 The right atrial size is normal. Aortic valve is trileaflet and is mildly thickened. The mitral valve leaflets are mildly thickened. Mild mitral annular calcification present. Mild m itral regurgitation is present. Trace tricuspid regurgitation present. The right ventricular systolic pressure, as measured by Dopp ler, is 14.52mmHg. There is no pulmonic regurgitation present. The aortic root size is normal. IVC Not well visulized. There is no pericardial effusion. CONCLUSIONS -------- 1. Sinus rhythm. 2. This was a technically good study. 3. The left ventricular size is normal. 4. There is mild concentric left ventricular hypertrophy. 5. Overall left ventricular systolic function is normal with, an EF between 55 - 60 %. 6. The right ventricle is mildly enlarged. 7. LA is moderately dilated 34-39 ml/m2 8. The right atrial size is normal. 9. Aortic valve is trileaflet and is mildly thickened. 10. The mitral valve leaflets are mildly thickened. 11. Mild mitral annular calcification present. 12. Mild mitral regurgitation is present. 13. Trace tricuspid regurgitation present. 14. The right ventricular systolic pressure, as measured by Doppler, is 14.52mmHg. 15. There is no pulmonic regurgitation present. 16. The aortic root size is normal. 17. IVC Not well visulized. 18. There is no pericardial effusion. TAX COMPLIANCE MANAGER: Farhana Alvarez RDCS
[2019-03-14 20:25] LABS: Glucose,Whole Blood 323 mg/dL (75-99)
[2019-03-14] MEDS: PANTOPRAZOLE 40 MG TABLET PO SCH (20:46)
[2019-03-14 21:31] LABS: Appearance,Urine Clear (Clear); Bilirubin,Urine Negative (Negative); Blood,Urine Negative (Negative); Color,Urine Yellow; Glucose,Urine (UA) Negative (Negative); Ketones,Urine Negative (Negative); Leukocyte Esterase,Urine Negative (Negative); Nitrite,Urine Negative (Negative); PH, Urine 6.5 (5.0-8.0); Protein,Urine 2+ (Negative); RBC,Urine <1 /hpf (0-5); Specific Gravity,Urine 1.015 (1.001-1.035); Squamous Epithelial Cell,Urine <1 /hpf (0-4); Urobilinogen,Urine <2.0 mg/dL (<2.0)
--- NOTE | 2019-03-15 01:03 | P.PN ---
Subjective Progress Note Date: 03/14/19 Principal diagnosis: Acute influenza A infection Elevated troponin level Patient is a 88-year-old female with a known history of coronary artery disease with history of stent placement, hypertension, CHF, diabetes type 2 diet- controlled, hyperlipidemia, memory impairment and history of giant cell arteritis came to the hospital with the complaints of cough and congestion for the past 1 week. Patient has been having worsening symptoms for the past 1 week. Cough is mostly dry. Patient was seen by her primary care physician and suspected due to seasonal ALLERGIES and was started on Tessalon Perles and Claritin. Today patient developed fever at home and was brought to the hospital by her family. No history of smoking or COPD in the past. Patient does have a history of CHF. Patient was also found have slightly elevated troponin level. Otherwise denied any complaints of chest pain. No leg swelling. No nausea vomiting or abdominal pain. No diarrhea. Patient's was sick about one week ago with upper respiratory infections. No headache or dizziness or lightheadedness. Patient is somewhat poor historian. Chest x-ray showed no acute abnormalities noted EKG showed normal sinus rhythm with atrial arrhythmia. Influenza A+ Troponin 0.068 BUN 29 creatinine 1.16. No leukocytosis. 03/14/2019 Patient is able to sit in the setting comfortably today. Still complaining of shortness of breath. Not tolerating oral diet very well. Continued on gentle hydration. Cardiology was consulted due to elevated troponin level. Troponin trending down to 0.059 from 0.068. 2-D echo cardiac exam showed normal ejection fraction. No wall most abnormalities noted. Otherwise patient is being continued on breathing treatments as needed, Tamiflu and azithromycin. No fever no chills. No nausea vomiting or abdominal pain. No complaints of chest pain. Current medications reviewed. Objective - Vital Signs Vital signs: Vital Signs Temp 98.1 F 03/14/19 11:24 Pulse 74 03/14/19 15:30 Resp 18 03/14/19 15:17 BP 124/66 03/14/19 11:24 Pulse Ox 97 03/14/19 15:17 Intake & Output 03/13/19 03/14/19 03/14/19 18:59 06:59 18:59 Intake Total 250 900 Balance 250 900 Weight 47.627 kg 48.8 kg Intake: Intake, IV Titration 600 Amount Sodium Chloride 0.9% 1, 600 000 ml @ 50 mls/hr IV . Q20H [facility] Rx#:[id number] Oral 250 300 Other: Voiding Method Toilet Toilet # Voids 1 - Exam PHYSICAL EXAMINATION: Patient is lying in the bed comfortably, no acute distress, awake alert and o riented.. HEENT: Normocephalic. Neck is supple. Pupils reactive. Nostrils clear. Oral cavity is moist. Ears reveal no drainage. Neck reveals no JVD, carotid bruits, or thyromegaly. CHEST EXAMINATION: Trachea is central. Symmetrical expansion. Bibasilar diminished air entry and scattered rhonchi and coarse breath sounds CARDIAC: Normal S1, S2 with no gallops. No murmurs ABDOMEN: Soft. Bowel sounds normal. No organomegaly. No abdominal bruits. Extremities: Trace edema. No clubbing or cyanosis Neurologically awake, alert, oriented x2-3 with well-coordinated movements. No focal deficits noted Skin: No rash or skin lesions. Psychiatric: Coperative. Nonsuicidal Musculoskeletal: No joint swelling or deformity. Normal range of motion. - Labs CBC & Chem 7: 03/13/19 13:00 03/13/19 13:00 Labs: Abnormal Lab Results - Last 24 Hours (Table) 03/13/19 03/13/19 03/14/19 Range/Units 20:37 23:57 05:36 POC Glucose (mg/dL) 195 H 119 H (75-99) mg/dL Troponin I 0.059 H* (0.000-0.034) ng/mL 03/14/19 Range/Units 11:21 POC Glucose (mg/dL) 144 H (75-99) mg/dL Troponin I (0.000-0.034) ng/mL Microbiology - Last 24 Hours (Table) 03/13/19 13:00 Blood Culture - Preliminary Blood No Growth after 24 hours Assessment and Plan Assessment: cough and congestion due to acute influenza A infection Bronchospasm with reactive airway disease. Possible acute tracheobronchitis Elevated troponin likely demand mismatch Chronic CHF with ejection fraction unknown Coronary artery disease with history of stent placement Diabetes type 2 diet-controlled Hypertension Impairment History of skin cancer Chronic kidney disease stage III History Gaint cell arteritis Hypothyroidism Restless leg syndrome Occasional urinary incontinence Iron deficiency anemia DVT prophylaxis with heparin subcu Plan: Patient be continued on DuoNeb's and prednisone 40 mg daily. Patient was also started on antibiotics in the form of azithromycin. Continue with Tamiflu. Continue with home medications and blood pressure medications as tolerated. Serial troponins trending down. Cardiology was consulted. Further recommendations based on the clinical course. Discussed with her family at bedside in detail and all questions were answered. Prognosis is guarded. Time with Patient: Greater than 30
[2019-03-15 05:56] LABS: Glucose,Whole Blood 194 mg/dL (75-99)
[2019-03-15] MEDS: LEVOTHYROXINE 75 MCG TAB PO SCH (06:13)
[2019-03-15] MEDS: INSULIN ASPART (NovoLOG) 100 UNIT/ML VIAL SQ SCH ×4 (06:14→21:42)
[2019-03-15 07:07] LABS: Basophils % (A) 0 %; Eosinophils % (A) 0 %; HCT 29.3 % (34.0-46.0); HGB 9.8 gm/dL (11.4-16.0); Lymphocytes # (A) 0.8 k/uL (1.0-4.8); Lymphocytes % (A) 11 %; MCH 31.8 pg (25.0-35.0); MCHC 33.5 g/dL (31.0-37.0); Mean Platelet Volume 7.9; Monocytes # (A) 0.3 k/uL (0-1.0); Monocytes % (A) 4 %; Neutrophils # (A) 6.1 k/uL (1.3-7.7); Neutrophils % (A) 83 %; Platelet Count 182 k/uL (150-450); RBC 3.08 m/uL (3.80-5.40); RDW 12.8 % (11.5-15.5); WBC 7.4 k/uL (3.8-10.6)
[2019-03-15 07:15] LABS: Calcium 8.7 mg/dL (8.4-10.2); Potassium 4.3 mmol/L (3.5-5.1)
[2019-03-15] MEDS: IPRATROPIUM-ALBUTEROL 3 ML NEB INHALATION SCH ×4 (07:43→20:07)
--- NOTE | 2019-03-15 08:57 | P.CRDCN ---
History of Present Illness Consult date: 03/15/19 Chief complaint: Shortness of breath History of present illness: This is a pleasant 88-year-old female patient who sees Dr. Leon in t he office as an outpatient with a past medical history significant for coronary artery disease and multiple coronary stenting with unknown details at this point, diabetes type 2, hypertension, dyslipidemia, and history of congestive heart failure as well as history of memory impairment, who was referred to the hospital by her primary care physician for further evaluation of cough, shortness of breath, and congestion. The patient has been having these symptoms for the last week. She did not have any symptoms of chest pain or chest discomfort. No dizziness or lightheadedness, heart racing or fluttering, or syncope. Her cough is mostly dry. At home she did have some fever and chills. In the hospital she was found to be positive for influenza A. Currently she is on isolation. We get involved in her care because of abnormal cardiac enzymes was mildly abnormal troponin. The creatinine is a slightly elevated. The EKG showed sinus rhythm with RBBB and without any ischemic ST or T-wave abnormalities. The chest x-ray did not show any acute abnormalities. Past Medical History Past Medical History: Coronary Artery Disease (CAD), Cancer, Chest Pain / Angina, Heart Failure, Diabetes Mellitus, Hyperlipidemia, Hypertension, Memory Impairment, Osteoarthritis (OA), Renal Disease, Skin Disorder Additional Past Medical History / Comment(s): Diabetes type II-diet controlled, fragile skin, chronic kidney disease being monitored, sciatica, Giant Cell Ateritis, anemia, peripheral edema, skin cancer with removal, hypothyroid, RLS, DJD, osteopenia, some urinary incontinence. History of Any Multi-Drug Resistant Organisms: None Reported Past Surgical History: Appendectomy, Heart Catheterization With Stent, Hysterectomy, Joint Replacement, Orthopedic Surgery Additional Past Surgical History / Comment(s): 04/18/16 Total L hip arthroplasty anterior approach. Other surgical hx: Cataract Surgery maryam eyes, skin ca removed, 2009 heart stents x 3, RAÚL, temporal artery bx, total R hip arthroplasty, skin ca removal. Past Anesthesia/Blood Transfusion Reactions: No Reported Reaction Additional Past Anesthesia/Blood Transfusion Reaction / Comment(s): Pt states she has received blood in the past without reaction. Date of Last Stent Placement:: 2009 Past Psychological History: No Psychological Hx Reported Additional Psychological History / Comment(s): Pt takes xanax to sleep not for anxiety. Pt resides with her spouse. She uses a walker or a cane to ambulate. She no longer drives-her spouse does or her shilpi will take her to appts. She has a glucometer. Smoking Status: Never smoker Past Alcohol Use History: None Reported Past Drug Use History: None Reported - Past Family History Mother Family Medical History: CVA/TIA Additional Family Medical History / Comment(s): Mother of a CVA at the age of 83 yrs. Father Additional Family Medical History / Comment(s): 80's Medications and Allergies Home Medications Medication Instructions Recorded Confirmed Type Ascorbic Acid [Vitamin C] 500 mg PO DAILY 03/23/15 03/13/19 History Aspirin 81 mg PO DAILY 03/23/15 03/13/19 History Calcium Carbonate/Vitamin D3 1 cap PO DAILY 03/23/15 03/13/19 History [Calcium 600 + Vit D Tablet] Cinnamon Bark [Cinnamon] 1,000 mg PO DAILY 03/23/15 03/13/19 History Levothyroxine Sodium [Levoxyl] 75 mcg PO QAM 03/23/15 03/13/19 History Metoprolol Tartrate 50 mg PO BID 03/23/15 03/13/19 History Multivitamin with Iron [Daily 1 tab PO DAILY 03/23/15 03/13/19 History Multivitamin with Iron] [place]-3 Fatty Acids/Fish Oil [Fish 1 cap PO DAILY 03/23/15 03/13/19 History Oil 1,000 mg Softgel] Simvastatin 10 mg PO DAILY 03/23/15 03/13/19 History amLODIPine BESYLATE [Amlodipine 5 mg PO QAM 03/23/15 03/13/19 History Besylate] rOPINIRole HCL 0.5 mg PO DAILY 03/23/15 03/13/19 History Ergocalciferol [Vitamin D2] 50,000 unit PO QMONTH 04/06/16 03/13/19 History Ferrous Sulfate [Feosol] 325 mg PO DAILY 04/06/16 03/13/19 History Furosemide [Lasix] 20 mg PO QAM 04/06/16 03/13/19 History Omeprazole 20 mg PO HS 04/06/16 03/13/19 History ALPRAZolam [Xanax] 0.5 mg PO DAILY PRN 03/13/19 03/13/19 History Benzonatate [Tessalon Perles] 100 mg PO TID 03/13/19 03/13/19 History Loratadine [Claritin] 10 mg PO BID 03/13/19 03/13/19 History Allergies Allergy/AdvReac Type Severity Reaction Status Date / Time nitrofurantoin Allergy Rash/Hives Verified 03/13/19 12:29 [From Macrobid] nitrofurantoin Allergy Rash/Hives Verified 03/13/19 12:29 macrocrystalline [From Macrobid] adhesive AdvReac tears skin Verified 03/13/19 12:29 ibuprofen [From Motrin] AdvReac Vomiting Verified 03/13/19 12:29 isosorbide AdvReac Rash/Hives Verified 03/13/19 12:29 mepivacaine HCl AdvReac Unknown Verified 03/13/19 12:29 [From Carbocaine] morphine AdvReac Nausea & Verified 03/13/19 12:29 Vomiting ofloxacin [From Floxin] AdvReac Hallucinati Verified 03/13/19 12:29 ons Physical Exam Vitals: Vital Signs Temp Pulse Pulse Resp BP Pulse Ox 03/15/19 07:45 72 03/15/19 03:39 76 19 03/15/19 03:38 97.9 F 76 19 152/71 92 L 03/14/19 23:45 84 16 03/14/19 23:44 97.5 F L 84 16 119/75 90 L 03/14/19 20:00 97.6 F 80 18 111/62 95 03/14/19 19:44 74 03/14/19 19:33 72 18 03/14/19 16:53 97.3 F L 66 18 127/65 95 03/14/19 16:51 72 18 03/14/19 15:30 74 03/14/19 15:17 76 18 97 03/14/19 12:21 74 03/14/19 12:08 74 03/14/19 11:24 98.1 F 72 18 124/66 95 03/14/19 11:14 88 20 03/14/19 09:51 98.5 F 88 20 131/59 97 03/14/19 09:48 20 03/14/19 09:08 80 03/14/19 08:59 76 Intake and Output 03/14/19 03/15/19 03/15/19 22:59 06:59 14:59 Intake Total 120 120 Output Total 200 Balance 120 -200 120 Intake: Oral 120 120 Output: Urine 200 Other: Voiding Method Toilet Toilet # Voids 1 1 Weight 49.2 kg - Constitutional General appearance: no acute distress - Respiratory Respiratory: bilateral: rales - Cardiovascular Rhythm: regular Heart sounds: normal: S1, S2 Abnormal Heart Sounds: systolic murmur Results 03/15/19 06:12 03/15/19 06:12 CBC 03/15/19 Range/Units 06:12 WBC 7.4 (3.8-10.6) k/uL RBC 3.08 L (3.80-5.40) m/uL Hgb 9.8 L (11.4-16.0) gm/dL Hct 29.3 L (34.0-46.0) % Plt Count 182 (150-450) k/uL Comprehensive Metabolic Panel 03/15/19 Range/Units 06:12 Sodium 140 (137-145) mmol/L Potassium 4.3 (3.5-5.1) mmol/L Chloride 109 H (98-107) mmol/L Carbon Dioxide 24 (22-30) mmol/L BUN 28 H (7-17) mg/dL Creatinine 1.03 (0.52-1.04) mg/dL Glucose 170 H (74-99) mg/dL Calcium 8.7 (8.4-10.2) mg/dL Current Medications Generic Name Dose Route Start Last Admin Trade Name Freq PRN Reason Stop Dose Admin Albuterol/Ipratropium 3 ml 03/13/19 14:44 Duoneb 0.5 Mg-3 Mg/3 Ml Soln INHALATION RT-Q4H PRN Shortness Of Breath Or Wheezing Albuterol/Ipratropium 3 ml 03/13/19 16:00 03/15/19 07:43 Duoneb 0.5 Mg-3 Mg/3 Ml Soln INHALATION 3 ml RT-QID NBA Administration Alprazolam 0.5 mg 03/13/19 21:35 03/14/19 03:25 Xanax PO 0.5 mg DAILY PRN Administration Anxiety Ascorbic Acid 500 mg 03/14/19 09:00 05/03/19 09:17 Vitamin C PO 500 mg DAILY NBA Administration Aspirin 81 mg 03/14/19 09:00 03/14/19 09:17 Aspirin PO 81 mg DAILY NBA Administration Atorvastatin Calcium 10 mg 03/14/19 09:00 03/14/19 09:17 Lipitor PO 10 mg DAILY NBA Administration Azithromycin 500 mg 03/14/19 09:00 03/14/19 09:17 Zithromax PO 500 mg DAILY NBA Administration Benzonatate 100 mg 03/13/19 22:00 Tessalon Perles PO TID PRN Cough Calcium Carbonate 1 each 03/14/19 09:00 03/14/19 09:17 Oscal 500+D PO 1 each DAILY NBA Administration Ferrous Sulfate 325 mg 03/14/19 09:00 03/14/19 09:17 Feosol PO 325 mg DAILY NBA Administration Heparin Sodium (Porcine) 5,000 unit 03/14/19 00:00 03/14/19 22:58 Heparin SQ 5,000 unit Q8HR NBA Administration Sodium Chloride 1,000 mls @ 50 mls/hr 03/13/19 14:15 03/14/19 20:47 Saline 0.9% IV 50 mls/hr .Q20H NBA Administration Insulin Aspart 0 unit 03/13/19 21:43 03/15/19 06:14 Novolog SQ 2 unit ACHS NBA Administration Protocol Levothyroxine Sodium 75 mcg 03/14/19 06:30 03/15/19 06:13 Synthroid PO 75 mcg QAM@0630 NBA Administration Metoprolol Tartrate 50 mg 03/14/19 09:00 03/14/19 20:46 Lopressor PO 50 mg BID NBA Administration Multivitamins 1 each 03/14/19 09:00 03/14/19 09:17 Theragran PO 1 each DAILY NBA Administration Oseltamivir Phosphate 30 mg 03/14/19 09:00 03/14/19 09:16 Tamiflu PO 03/17/19 09:01 30 mg DAILY NBA Administration Pantoprazole Sodium 40 mg 03/14/19 21:00 03/14/19 20:46 Protonix PO 40 mg HS NBA Administration Prednisone 40 mg 03/14/19 09:00 03/14/19 09:17 PO 40 mg DAILY NBA Administration Ropinirole HCl 0.5 mg 03/14/19 09:00 05/03/19 09:16 Requip PO 0.5 mg DAILY NBA Administration Intake and Output 03/14/19 03/15/19 03/15/19 22:59 06:59 14:59 Intake Total 120 120 Output Total 200 Balance 120 -200 120 Intake: Oral 120 120 Output: Urine 200 Other: Voiding Method Toilet Toilet # Voids 1 1 Weight 49.2 kg 03/15/19 06:12 03/15/19 06:12 Assessment and Plan Assessment: Assessment #1 influenza A infection #2 acute renal failure, probably prerenal #3 mildly abnormal cardiac enzymes #4 coronary artery disease and prior angioplasty and stenting #5 multiple comorbid conditions including diabetes, hypertension, dyslipidemia Plan #1 I would consider medical treatment for the mildly abnormal enzymes, giving the absence of chest pain, ischemic EKG changes, and in the setting of acute renal failure #2 continue the current medical regimen which includes aspirin, beta aramis, and statin #3 obtain an echocardiogram was Doppler #4 follow-up with the patient Thank you again for allowing us participate in her care and we will continue following up with the patient
[2019-03-15] MEDS: OSELTAMIVIR 60 MG/10 ML ORAL SYRINGE PO SCH (09:55)
[2019-03-15] MEDS: METOPROLOL TARTRATE 50 MG TAB PO SCH ×2 (09:56→20:15)
[2019-03-15] MEDS: predniSONE 20 MG TAB PO SCH (09:56)
[2019-03-15] MEDS: FERROUS SULFATE 325 MG TAB PO SCH (09:57)
[2019-03-15] MEDS: MULTIVITAMINS, THERA 1 EACH TAB PO SCH (09:57)
[2019-03-15] MEDS: CALCIUM CARB-VIT D 500MG-200UN 1 EACH TAB PO SCH (09:58)
[2019-03-15] MEDS: ASCORBIC ACID 500 MG TAB PO SCH (09:58)
[2019-03-15] MEDS: AZITHROMYCIN 500 MG TAB PO SCH (09:58)
[2019-03-15] MEDS: ATORVASTATIN 10 MG TAB PO SCH (09:58)
[2019-03-15] MEDS: ASPIRIN 81 MG PO SCH (09:59)
[2019-03-15] MEDS: HEPARIN SODIUM,PORCINE 5,000 UNIT/ML 1 ML VIAL SQ SCH ×3 (09:59→23:07)
[2019-03-15 11:35] LABS: Glucose,Whole Blood 216 mg/dL (75-99)
--- NOTE | 2019-03-15 15:55 | P.PN ---
Subjective Progress Note Date: 03/15/19 88-year-old female with a known history of coronary artery disease with history of stent placement, hypertension, CHF, diabetes type 2 diet-controlled, hyperlipidemia, memory impairment and history of giant cell arteritis came to the hospital with the complaints of cough and congestion for the past 1 week. Patient has been having worsening symptoms for the past 1 week. Cough is mostly dry. Patient was seen by her primary care physician and suspected due to seasonal ALLERGIES and was started on Tessalon Perles and Claritin. Today patient developed fever at home and was brought to the hospital by her family. No history of smoking or COPD in the past. Patient does have a history of CHF. Patient was also found have slightly elevated troponin level. Otherwise denied any complaints of chest pain. No leg swelling. No nausea vomiting or abdominal pain. No diarrhea. Patient's was sick about one week ago with upper respiratory infections. No headache or dizziness or lightheadedness. Patient is somewhat poor historian. Chest x-ray showed no acute abnormalities noted EKG showed normal sinus rhythm with atrial arrhythmia. Influenza A+ Troponin 0.068 BUN 29 creatinine 1.16. No leukocytosis. 03/15/2019 Patient is seen and evaluated in the room at bedside; family is also present in the room and concerned about patient being extremely weak; breathing is slowly improving Vital signs with a temperature of 98 pulse 72 respiration 18 and blood pressure 134/70 with SpO2 of 96% Labs are stable with a white blood count of 7.4, hemoglobin 9.8; chemical profile shows a BUN of 28 with creatinine of 1.03 We will continue with current management and increase activity; possible discharge home tomorrow Objective - Vital Signs Vital signs: Vital Signs Temp 97.9 F 03/15/19 08:00 Pulse 72 03/15/19 11:20 Resp 18 03/15/19 08:00 BP 144/71 03/15/19 08:00 Pulse Ox 93 L 03/15/19 08:00 Intake & Output 03/14/19 03/15/19 03/15/19 18:59 06:59 18:59 Intake Total 1020 120 Output Total 200 600 Balance 1020 -200 -480 Weight 49.2 kg Intake: Intake, IV Titration 600 Amount Sodium Chloride 0.9% 1, 600 000 ml @ 50 mls/hr IV . Q20H [facility] Rx#:[id number] Oral 420 120 Output: Urine 200 600 Other: Voiding Method Toilet Toilet # Voids 1 - Exam PHYSICAL EXAMINATION: GENERAL: The patient is alert and oriented x3, not in any acute distress. Well developed, well nourished. HEENT: Pupils are round and equally reacting to light. EOMI. No scleral icterus. No conjunctival pallor. Normocephalic, atraumatic. No pharyngeal erythema. No thyromegaly. CARDIOVASCULAR: S1 and S2 present. No murmurs, rubs, or gallops. PULMONARY: Chest is clear to auscultation, no wheezing or crackles. ABDOMEN: Soft, nontender, nondistended, normoactive bowel sounds. No palpable organomegaly. MUSCULOSKELETAL: No joint swelling or deformity. EXTREMITIES: No cyanosis, clubbing, or pedal edema. NEUROLOGICAL: Gross neurological examination did not reveal any focal deficits. SKIN: No rashes. - Labs CBC & Chem 7: 03/15/19 06:12 03/15/19 06:12 Labs: Abnormal Lab Results - Last 24 Hours (Table) 03/14/19 03/14/19 03/14/19 Range/Units 16:34 19:30 20:23 RBC (3.80-5.40) m/uL Hgb (11.4-16.0) gm/dL Hct (34.0-46.0) % Lymphocytes # (1.0-4.8) k/uL Chloride (98-107) mmol/L BUN (7-17) mg/dL Glucose (74-99) mg/dL POC Glucose (mg/dL) 256 H 323 H (75-99) mg/dL Urine Protein 2+ H (Negative) 03/15/19 03/15/19 03/15/19 Range/Units 05:55 06:12 06:12 RBC 3.08 L (3.80-5.40) m/uL Hgb 9.8 L (11.4-16.0) gm/dL Hct 29.3 L (34.0-46.0) % Lymphocytes # 0.8 L (1.0-4.8) k/uL Chloride 109 H (98-107) mmol/L BUN 28 H (7-17) mg/dL Glucose 170 H (74-99) mg/dL POC Glucose (mg/dL) 194 H (75-99) mg/dL Urine Protein (Negative) 03/15/19 Range/Units 11:33 RBC (3.80-5.40) m/uL Hgb (11.4-16.0) gm/dL Hct (34.0-46.0) % Lymphocytes # (1.0-4.8) k/uL Chloride (98-107) mmol/L BUN (7-17) mg/dL Glucose (74-99) mg/dL POC Glucose (mg/dL) 216 H (75-99) mg/dL Urine Protein (Negative) Microbiology - Last 24 Hours (Table) 03/14/19 19:30 Urine Culture - Preliminary Urine,Voided 03/13/19 13:00 Blood Culture - Preliminary Blood No Growth after 24 hours Assessment and Plan Assessment: cough and congestion due to acute influenza A infection Bronchospasm with reactive airway disease. Possible acute tracheobronchitis Elevated troponin likely demand mismatch Chronic CHF with ejection fraction unknown Coronary artery disease with history of stent placement Diabetes type 2 diet-controlled Hypertension Impairment History of skin cancer Chronic kidney disease stage III History Gaint cell arteritis Hypothyroidism Restless leg syndrome Occasional urinary incontinence Iron deficiency anemia DVT prophylaxis with heparin subcu Plan: Patient be continued on DuoNeb's and prednisone 40 mg daily. Patient was also started on antibiotics in the form of azithromycin. Continue with Tamiflu. Continue with home medications and blood pressure medications as tolerated. Serial troponins trending down. Cardiology was consulted. Further recommendations based on the clinical course. Discussed with her family at bedside in detail and all questions were answered. Prognosis is guarded. Time with Patient: Greater than 30
[2019-03-15 16:38] LABS: Glucose,Whole Blood 184 mg/dL (75-99)
[2019-03-15] MEDS: PANTOPRAZOLE 40 MG TABLET PO SCH (20:15)
[2019-03-15 21:20] LABS: Glucose,Whole Blood 317 mg/dL (75-99)
[2019-03-16] MEDS: SODIUM CHLORIDE 0.9% 1,000 ML IV SCH ×2 (04:23→23:06)
[2019-03-16 06:05] LABS: Glucose,Whole Blood 152 mg/dL (75-99)
[2019-03-16] MEDS: INSULIN ASPART (NovoLOG) 100 UNIT/ML VIAL SQ SCH ×4 (06:20→21:02)
[2019-03-16] MEDS: LEVOTHYROXINE 75 MCG TAB PO SCH (06:20)
[2019-03-16] MEDS: IPRATROPIUM-ALBUTEROL 3 ML NEB INHALATION SCH ×4 (07:12→21:15)
[2019-03-16] MEDS: METOPROLOL TARTRATE 50 MG TAB PO SCH ×2 (07:49→20:25)
[2019-03-16] MEDS: HEPARIN SODIUM,PORCINE 5,000 UNIT/ML 1 ML VIAL SQ SCH ×2 (07:49→17:38)
[2019-03-16] MEDS: ASCORBIC ACID 500 MG TAB PO SCH (07:49)
[2019-03-16] MEDS: AZITHROMYCIN 500 MG TAB PO SCH (07:49)
[2019-03-16] MEDS: ASPIRIN 81 MG PO SCH (07:50)
[2019-03-16] MEDS: ATORVASTATIN 10 MG TAB PO SCH (07:50)
[2019-03-16] MEDS: CALCIUM CARB-VIT D 500MG-200UN 1 EACH TAB PO SCH (07:50)
[2019-03-16] MEDS: MULTIVITAMINS, THERA 1 EACH TAB PO SCH (07:50)
[2019-03-16] MEDS: FERROUS SULFATE 325 MG TAB PO SCH (07:50)
[2019-03-16] MEDS: predniSONE 20 MG TAB PO SCH (07:50)
[2019-03-16] MEDS: OSELTAMIVIR 60 MG/10 ML ORAL SYRINGE PO SCH (07:51)
--- NOTE | 2019-03-16 09:26 | P.PN ---
Subjective Progress Note Date: 03/16/19 Principal diagnosis: Abnormal cardiac enzymes This is a pleasant 88-year-old female patient who sees Dr. Leon in the office as an outpatient with a past medical history significant for coronary artery disease and multiple coronary stenting with unknown details at this point, diabetes type 2, hypertension, dyslipidemia, and history of congestive heart failure as well as history of memory impairment, who was referred to the hospital by her primary care physician for further evaluation of cough, shortness of breath, and congestion. The patient has been having these symptoms for the last week. She did not have any symptoms of chest pain or chest discomfort. No dizziness or lightheadedness, heart racing or fluttering, or syncope. Her cough is mostly dry. At home she did have some fever and chills. In the hospital she was found to be positive for influenza A. Currently she is on isolation. We get involved in her care because of abnormal cardiac enzymes was mildly abnormal troponin. The creatinine is a slightly elevated. The EKG showed sinus rhythm with RBBB and without any ischemic ST or T-wave abnormalities. The chest x-ray did not show any acute abnormalities. On follow-up with the patient today, March [id number], the patient overall is feeli ng better. She denies any symptoms of chest pain or chest discomfort. The shortness of breath has improved. No dizziness or lightheadedness. I would advise conservative medical approach for the mildly abnormal cardiac enzymes. She is on aspirin, statin, and metoprolol, and we will continue that. The echocardiogram revealed normal LV function without any evidence of wall motion abnormalities. Objective - Vital Signs Vital signs: Vital Signs Temp 97.9 F 03/16/19 08:00 Pulse 73 03/16/19 08:00 Resp 16 03/16/19 08:00 BP 140/80 03/16/19 08:00 Pulse Ox 97 03/16/19 08:00 Intake & Output 03/15/19 03/16/19 03/16/19 18:59 06:59 18:59 Intake Total 240 240 Output Total 900 1400 Balance -660 -1400 240 Weight 49.6 kg Intake: Oral 240 240 Output: Urine 900 1400 Other: Voiding Method Toilet # Voids 1 - Constitutional General appearance: Present: no acute distress - Respiratory Respiratory: bilateral: diminished - Cardiovascular Rhythm: regular Heart sounds: normal: S1, S2 Abnormal Heart Sounds: Present: systolic murmur - Labs CBC & Chem 7: 03/15/19 06:12 03/15/19 06:12 Labs: Abnormal Lab Results - Last 24 Hours (Table) 03/15/19 03/15/19 03/15/19 Range/Units 11:33 16:37 20:46 POC Glucose (mg/dL) 216 H 184 H 317 H (75-99) mg/dL 03/16/19 Range/Units 06:04 POC Glucose (mg/dL) 152 H (75-99) mg/dL Microbiology - Last 24 Hours (Table) 03/14/19 19:30 Urine Culture - Final Urine,Voided 03/13/19 13:00 Blood Culture - Preliminary Blood No Growth after 48 hours Assessment and Plan Assessment: Assessment #1 influenza A infection #2 acute renal failure, probably prerenal #3 mildly abnormal cardiac enzymes #4 coronary artery disease and prior angioplasty and stenting #5 multiple comorbid conditions including diabetes, hypertension, dyslipidemia Plan #1 I would consider medical treatment for the mildly abnormal enzymes, giving the absence of chest pain, ischemic EKG changes, and in the setting of acute renal failure #2 continue the current medical regimen which includes aspirin, beta aramis, and statin #3 the echo was reviewed and revealed normal LV function #4 follow-up with the patient Thank you again for allowing us participate in her care and we will continue following up with the patient
[2019-03-16 11:46] LABS: Glucose,Whole Blood 220 mg/dL (75-99)
--- NOTE | 2019-03-16 15:27 | P.PN ---
Subjective Progress Note Date: 03/16/19 88-year-old female with a known history of coronary artery disease with history of stent placement, hypertension, CHF, diabetes type 2 diet-controlled, hyperlipidemia, memory impairment and history of giant cell arteritis came to the hospital with the complaints of cough and congestion for the past 1 week. Patient has been having worsening symptoms for the past 1 week. Cough is mostly dry. Patient was seen by her primary care physician and suspected due to seasonal ALLERGIES and was started on Tessalon Perles and Claritin. Today patient developed fever at home and was brought to the hospital by her family. No history of smoking or COPD in the past. Patient does have a history of CHF. Patient was also found have slightly elevated troponin level. Otherwise denied any complaints of chest pain. No leg swelling. No nausea vomiting or abdominal pain. No diarrhea. Patient's was sick about one week ago with upper respiratory infections. No headache or dizziness or lightheadedness. Patient is somewhat poor historian. Chest x-ray showed no acute abnormalities noted EKG showed normal sinus rhythm with atrial arrhythmia. Influenza A+ Troponin 0.068 BUN 29 creatinine 1.16. No leukocytosis. 03/15/2019 Patient is seen and evaluated in the room at bedside; family is also present in the room and concerned about patient being extremely weak; breathing is slowly improving Vital signs with a temperature of 98 pulse 72 respiration 18 and blood pressure 134/70 with SpO2 of 96% Labs are stable with a white blood count of 7.4, hemoglobin 9.8; chemical profile shows a BUN of 28 with creatinine of 1.03 We will continue with current management and increase activity; possible discharge home tomorrow 03/16/2019 Patient is seen and evaluated in the room at bedside; continues to complain of extreme weakness while ambulating to the bathroom; patient relates she did feel dizzy this morning while getting out of bed and had to ask help from staff Vital signs remained stable with a temperature of 97.9, pulse 76, respirations 16 and blood pressure 140/80; SpO2 of 97% on room air Blood sugars remain elevated over 200; we will continue to monitor Accu-Cheks every before meals and at bedtime with insulin sliding scale We will consult PT for evaluation and for discharge planning; possible discharge in next 24 hours Objective - Vital Signs Vital signs: Vital Signs Temp 97.9 F 03/16/19 08:00 Pulse 80 03/16/19 11:54 Resp 16 03/16/19 08:00 BP 140/80 03/16/19 08:00 Pulse Ox 97 03/16/19 08:00 Intake & Output 03/15/19 03/16/19 03/16/19 18:59 06:59 18:59 Intake Total 240 240 Output Total 900 1400 Balance -660 -1400 240 Weight 49.6 kg Intake: Oral 240 240 Output: Urine 900 1400 Other: Voiding Method Toilet # Voids 1 - Exam PHYSICAL EXAMINATION: GENERAL: The patient is alert and oriented x3, not in any acute distress. Well developed, well nourished. HEENT: Pupils are round and equally reacting to light. EOMI. No scleral icterus. No conjunctival pallor. Normocephalic, atraumatic. No pharyngeal erythema. No thyromegaly. CARDIOVASCULAR: S1 and S2 present. No murmurs, rubs, or gallops. PULMONARY: Chest is clear to auscultation, no wheezing or crackles. ABDOMEN: Soft, nontender, nondistended, normoactive bowel sounds. No palpable organomegaly. MUSCULOSKELETAL: No joint swelling or deformity. EXTREMITIES: No cyanosis, clubbing, or pedal edema. NEUROLOGICAL: Gross neurological examination did not reveal any focal deficits. SKIN: No rashes. - Labs CBC & Chem 7: 03/15/19 06:12 03/15/19 06:12 Labs: Abnormal Lab Results - Last 24 Hours (Table) 03/15/19 03/15/19 03/16/19 Range/Units 16:37 20:46 06:04 POC Glucose (mg/dL) 184 H 317 H 152 H (75-99) mg/dL 03/16/19 Range/Units 11:41 POC Glucose (mg/dL) 220 H (75-99) mg/dL Microbiology - Last 24 Hours (Table) 03/14/19 19:30 Urine Culture - Final Urine,Voided 03/13/19 13:00 Blood Culture - Preliminary Blood No Growth after 48 hours Assessment and Plan Assessment: cough and congestion due to acute influenza A infection Bronchospasm with reactive airway disease. Possible acute tracheobronchitis Elevated troponin likely demand mismatch Chronic CHF with ejection fraction unknown Coronary artery disease with history of stent placement Diabetes type 2 diet-controlled Hypertension Impairment History of skin cancer Chronic kidney disease stage III History Gaint cell arteritis Hypothyroidism Restless leg syndrome Occasional urinary incontinence Iron deficiency anemia DVT prophylaxis with heparin subcu Plan: Patient be continued on DuoNeb's and prednisone 40 mg daily. Patient was also started on antibiotics in the form of azithromycin. Continue with Tamiflu. Continue with home medications and blood pressure medications as tolerated. Serial troponins trending down. Cardiology was consulted. Further re commendations based on the clinical course. Discussed with her family at bedside in detail and all questions were answered. Prognosis is guarded. Time with Patient: Greater than 30
[2019-03-16 17:07] LABS: Glucose,Whole Blood 182 mg/dL (75-99)
[2019-03-16] MEDS: PANTOPRAZOLE 40 MG TABLET PO SCH (20:25)
[2019-03-16 20:57] LABS: Glucose,Whole Blood 228 mg/dL (75-99)
[2019-03-17] MEDS: HEPARIN SODIUM,PORCINE 5,000 UNIT/ML 1 ML VIAL SQ SCH ×3 (00:50→18:09)
[2019-03-17] MEDS: LEVOTHYROXINE 75 MCG TAB PO SCH (05:49)
[2019-03-17 07:15] LABS: Glucose,Whole Blood 124 mg/dL (75-99)
[2019-03-17] MEDS: IPRATROPIUM-ALBUTEROL 3 ML NEB INHALATION SCH ×4 (07:33→20:35)
[2019-03-17] MEDS: INSULIN ASPART (NovoLOG) 100 UNIT/ML VIAL SQ SCH ×4 (07:43→20:14)
[2019-03-17] MEDS: OSELTAMIVIR 60 MG/10 ML ORAL SYRINGE PO SCH (08:18)
[2019-03-17] MEDS: predniSONE 20 MG TAB PO SCH (08:19)
[2019-03-17] MEDS: CALCIUM CARB-VIT D 500MG-200UN 1 EACH TAB PO SCH (08:19)
[2019-03-17] MEDS: MULTIVITAMINS, THERA 1 EACH TAB PO SCH (08:19)
[2019-03-17] MEDS: METOPROLOL TARTRATE 50 MG TAB PO SCH ×2 (08:19→20:15)
[2019-03-17] MEDS: FERROUS SULFATE 325 MG TAB PO SCH (08:19)
[2019-03-17] MEDS: ATORVASTATIN 10 MG TAB PO SCH (08:19)
[2019-03-17] MEDS: ASPIRIN 81 MG PO SCH (08:19)
[2019-03-17] MEDS: AZITHROMYCIN 500 MG TAB PO SCH (08:19)
[2019-03-17] MEDS: ASCORBIC ACID 500 MG TAB PO SCH (08:20)
[2019-03-17 09:00] LABS: Basophils % (A) 0 %; Eosinophils % (A) 0 %; HCT 32.1 % (34.0-46.0); HGB 10.6 gm/dL (11.4-16.0); Lymphocytes # (A) 1.4 k/uL (1.0-4.8); Lymphocytes % (A) 12 %; MCH 31.3 pg (25.0-35.0); MCHC 33.1 g/dL (31.0-37.0); MCV 94.8 fL (80.0-100.0); Mean Platelet Volume 8.7; Monocytes # (A) 0.9 k/uL (0-1.0); Monocytes % (A) 8 %; Neutrophils % (A) 78 %; Platelet Count 328 k/uL (150-450); RBC 3.39 m/uL (3.80-5.40); RDW 13.3 % (11.5-15.5); WBC 11.5 k/uL (3.8-10.6)
[2019-03-17 12:04] LABS: Glucose,Whole Blood 190 mg/dL (75-99)
--- NOTE | 2019-03-17 14:22 | CDI ---
Documentation Clarification Form Date: 03/17/2019 CDS: Jo Leslie, CCS, CCDS Admit Date: 03/15/2019 Patient Name: Yana Escobar Discharge Date: 03/18/2019 ATTENTION: The Clinical Documentation Specialists (CDI) and [facility] Coding Staff appreciate your assistance in clarifying documentation. Please respond to the clarification below the line at the bottom and electronically sign. The CDI & [facility] Coding staff will review the response and follow-up if needed. Please note: Queries are made part of the Legal Health Record. If you have any questions, please contact the author of this message via ITS. Dr. Treviño: CHF is documented in the ED note, the History & Physical & also the Cardiology consult as a history. Per the ED note (Medical Decision Making): "She has normal white blood cell count 10.6, hemoglobin 10.7, Creatinine 1.16, troponin is mildly elevated 0.068, patient does have previous history of troponin elevation, this may be related to demand ischemia secondary to influenza versus congestive heart failure, doubt acute GA at this time." History/Risk Factors: CAD w/stent, Hypertension, CHF, DM II diet controlled, Hyperlipidemia, memory impairment. Clinical Indicators: Presented with SOB, dry non-productive cough & fever, Temp 101.7, trace extremity edema. VS: T 101.7^, P 97, R 22, BP 145/77, PO 91 RA LAB: Hgb 10.7*, Na 136*, BUN 29^, Creatinine 1.16^, Troponin 0.068^^, 0.059^^; Influenza A positive BNP: 3740 Echocardiogram Results: EF 55-60% systolic function normal Chest X Ray: CAD. Treatment: Albuterol INH, IV Azithromycin, IV fluid 50, O2 2Lnc, Telemetry. In your professional opinion, can you please clarify the acuity and type of CHF if known? Systolic Heart Failure: o Acute o Chronic o Acute on Chronic Diastolic Heart Failure: o Acute o Chronic o Acute on Chronic Systolic & Diastolic Heart Failure: o Acute o Chronic o Acute on Chronic Heart Failure Unable to Determine Other, please specify (Last Revision: February 2018) MTDD
[2019-03-17 16:55] LABS: Glucose,Whole Blood 262 mg/dL (75-99)
[2019-03-17 18:45] LABS: Hemoglobin A1C 6.7 % (4.0-6.0)
[2019-03-17 20:08] LABS: Glucose,Whole Blood 362 mg/dL (75-99)
[2019-03-17] MEDS: SODIUM CHLORIDE 0.9% 1,000 ML IV SCH (20:15)
[2019-03-17] MEDS: PANTOPRAZOLE 40 MG TABLET PO SCH (20:15)
[2019-03-17] MEDS: ALPRAZolam 0.5 MG TAB PO PRN (20:15)
--- NOTE | 2019-03-17 22:38 | PN ---
PROGRESS NOTE DATE OF SERVICE: 03/17/2019 This 88-year-old woman who was admitted with acute influenza also had reactive bronchospasm. The patient was started on bronchodilators. The patient has some cough and congestion, also. The patient had elevated troponin because of demand ischemia. Patient is being closely monitored. The patient is being followed by multiple consultants, including Cardiology. Past medical history reviewed. REVIEW OF SYSTEMS: CARDIOVASCULAR SYSTEM: As mentioned earlier. RESPIRATORY SYSTEM: As mentioned earlier. GI: No nausea, vomiting. : No dysuria or retention. NERVOUS SYSTEM: No numbness, weakness. CURRENT MEDICATIONS: Reviewed. They include: 1. DuoNeb q.i.d. and p.r.n. 2. Xanax 0.5 daily. 3. Vitamin C 500 mg p.o. daily. 4. Aspirin 81 mg daily. 5. Lipitor 10 mg. 6. Zithromax 500 mg p.o. daily. 7. Tessalon Perles. 8. Os-Bernabe with vitamin D. 9. Synthroid. 10.Lopressor. 11.Multivitamins. 12.Prednisone. 13.Requip. Doses were reviewed. PHYSICAL EXAMINATION: Patient is alert, oriented x2. Pulse 78, blood pressure 154/70, respiration 16, temperature 98.1, pulse ox 94% on room air. HEENT: Conjunctivae normal. NECK: No jugular venous distention. CARDIOVASCULAR SYSTEM: S1, S2 muffled. RESPIRATORY SYSTEM: Breath sounds diminished at the bases. Scattered rhonchi and crackles. Expiratory wheezing also present. ABDOMEN: Soft, non-tender. LEGS: No edema. No swelling. NERVOUS SYSTEM: No focal deficit. LABS: WBC 11.5, hemoglobin 10.6. Glucose noted 262. Hemoglobin A1c 6.7. ASSESSMENT: 1. Acute influenza A with acute purulent tracheobronchitis. 2. Possible reactive bronchospasm. 3. Elevated troponin, likely demand/supply mismatch. 4. Chronic congestive heart failure with ejection fraction unknown. 5. Coronary artery disease and history of stent. 6. Diabetes mellitus, type 2, diet-controlled. 7. Hypertension. 8. History of skin cancer. 9. History of chronic kidney disease, stage III. 10.History of giant-cell arteritis. 11.Hypothyroidism. 12.Restless legs syndrome. 13.Urinary incontinence. 14.Iron-deficiency anemia. 15.Deep venous thrombosis prophylaxis. RECOMMENDATIONS AND DISCUSSION: I recommend to continue current medications, continue with the monitoring, symptomatic treatment. Otherwise, continue with bronchodilators. Continue with steroids. Monitor blood sugars closely. Otherwise, I would recommend tapering down the steroids at this time and monitor closely. Guarded prognosis. Further recommendations to follow. See orders for further details. MMODL / IJN: [id number] /
[2019-03-18] MEDS: HEPARIN SODIUM,PORCINE 5,000 UNIT/ML 1 ML VIAL SQ SCH ×2 (00:32→09:18)
[2019-03-18 01:08] VITALS: RESP 16
[2019-03-18] MEDS: LEVOTHYROXINE 75 MCG TAB PO SCH (05:02)
[2019-03-18 07:13] LABS: Glucose,Whole Blood 112 mg/dL (75-99)
[2019-03-18] MEDS: INSULIN ASPART (NovoLOG) 100 UNIT/ML VIAL SQ SCH ×2 (07:34→12:21)
[2019-03-18 08:19] VITALS: BP 185/73; TEMP 97.9
[2019-03-18] MEDS: predniSONE 20 MG TAB PO SCH (09:18)
[2019-03-18] MEDS: MULTIVITAMINS, THERA 1 EACH TAB PO SCH (09:18)
[2019-03-18] MEDS: ASPIRIN 81 MG PO SCH (09:18)
[2019-03-18] MEDS: FERROUS SULFATE 325 MG TAB PO SCH (09:18)
[2019-03-18] MEDS: AZITHROMYCIN 500 MG TAB PO SCH (09:18)
[2019-03-18] MEDS: METOPROLOL TARTRATE 50 MG TAB PO SCH (09:18)
[2019-03-18] MEDS: ASCORBIC ACID 500 MG TAB PO SCH (09:19)
[2019-03-18] MEDS: ATORVASTATIN 10 MG TAB PO SCH (09:19)
[2019-03-18] MEDS: CALCIUM CARB-VIT D 500MG-200UN 1 EACH TAB PO SCH (09:19)
[2019-03-18] MEDS: IPRATROPIUM-ALBUTEROL 3 ML NEB INHALATION SCH ×2 (11:00→12:57)
[2019-03-18 11:50] LABS: Glucose,Whole Blood 225 mg/dL (75-99)
[2019-03-18 13:07] VITALS: PULSE 68
--- NOTE | 2019-03-19 09:27 | DS ---
DISCHARGE SUMMARY DATE OF SERVICE: 03/18/2019 FINAL DIAGNOSES: 1. Acute influenza A with acute purulent tracheobronchitis. 2. Possible reactive bronchospasm. 3. Possibly type [address]-segment myocardial infarction. 4. Elevated troponin, likely demand supply mismatch. 5. Chronic congestive heart failure with ejection fraction unknown. 6. Coronary artery disease, history of stent. 7. Diabetes mellitus type 2, diet controlled. 8. Hypertension. 9. History of skin cancer. 10.History of chronic kidney disease, stage III. 11.History of giant-cell arteritis. 12.Hypothyroidism. 13.Restless legs syndrome. 14.Urinary incontinence. 15.Iron-deficiency anemia. 16.Deep venous thrombosis prophylaxis. DISCHARGE DISPOSITION: The patient will be discharged in stable condition with guarded prognosis. HISTORY OF PRESENT ILLNESS: This 88-year-old woman with a past medical history of multiple medical problems, was admitted with acute influenza and also supraventricular reactive bronchospasm. The patient was treated symptomatically. Patient improved significantly. The blood sugar is elevated and recommended close monitor of the blood sugars. Otherwise hemoglobin A1c 6.7. The troponins are 0.059. Currently on exam, vitals are stable. CARDIOVASCULAR SYSTEM: S1, S2. RESPIRATION: Scattered rhonchi. ABDOMEN: Soft. NERVOUS SYSTEM: No focal deficits. DISCHARGE ADVICE: Diet is cardiac diet. Activity limited until followup. Follow up with Dr. Luke in 2-3 days. CBC, BMP in the outpatient setting.. MEDICATIONS: Will be: 1. Norvasc 5 mg p.o. q.a.m. 2. Aspirin 81 mg p.o. daily. 3. Vitamin D3 one p.o. daily. 4. Cinnamon 1000 mg p.o. daily. 5. Claritin 10 mg b.i.d. 6. Multivitamins 1 p.o. daily. 7. Fish oil 1 p.o. daily. 8. Iron sulfate 325 mg p.o. daily. 9. Lasix 20 mg q.a.m. 10.levoxyl 75 mg q.a.m. 11.Metoprolol 50 mg p.o. b.i.d. 12.Omeprazole 20 mg q.h.s. 13.Requip 0.4 daily. 14.Simvastatin 10 mg p.o. daily. 15.Tessalon Perles 100 mg p.o. t.i.d. 16.Vitamin C 500 mg p.o. 1 daily. 17.Vitamin D2 fifty thousand p.o. q. monthly. 18.Xanax 0.5 daily p.r.n. 19.Prednisone 40 mg daily for 3 days, 30 for 3 days, 20 for 3 days, 10 for 3 days. 20.Tylenol flu 30 mg daily for 4 more days. 21.Albuterol q.6 p.r.n. 22.Ventolin HFA 2 puffs q 8 p.r.n. 23.Zithromax 500 mg p.o. daily for 5 days. A CBC, BMP in 2 to 3 days. The sugar is elevated. More frequent blood sugar monitoring may be employed as outpatient. Once again, the patient will be discharged in stable condition with guarded prognosis. ARRONL / MICHAELN: [id number] / MTDD
== END 2019-03-18 14:37 | disposition home health service (06) | DRG 193 ==
LOC: EC 11:30 → 3SCARD 14:56 → OBSVTOIN 03-15 16:09 → 4SSUR 03-16 10:36
PROVIDERS: ADMIT Internal Medicine; ATTEND Internal Medicine
DX: J10.1 Influenza due to other identified influenza virus with other respiratory manifestations (principal); I21.A1 Myocardial infarction type 2; I13.0 Hypertensive heart and chronic kidney disease with heart failure and stage 1 through stage 4 chronic kidney disease, or unspecified chronic kidney disease; N17.9 Acute kidney failure, unspecified; E11.22 Type 2 diabetes mellitus with diabetic chronic kidney disease; I50.9 Heart failure, unspecified; J20.9 Acute bronchitis, unspecified; I45.10 Unspecified right bundle-branch block; N18.3 Chronic kidney disease, stage 3 (moderate); D50.9 Iron deficiency anemia, unspecified; E03.9 Hypothyroidism, unspecified; E78.5 Hyperlipidemia, unspecified; G25.81 Restless legs syndrome; I25.10 Atherosclerotic heart disease of native coronary artery without angina pectoris; J45.909 Unspecified asthma, uncomplicated; M85.80 Other specified disorders of bone density and structure, unspecified site; R32 Unspecified urinary incontinence; M19.90 Unspecified osteoarthritis, unspecified site; M54.30 Sciatica, unspecified side; Z79.82 Long term (current) use of aspirin; Z79.890 Hormone replacement therapy; Z79.899 Other long term (current) drug therapy; Z95.5 Presence of coronary angioplasty implant and graft; Z85.828 Personal history of other malignant neoplasm of skin; Z90.710 Acquired absence of both cervix and uterus; Z90.49 Acquired absence of other specified parts of digestive tract; Z96.643 Presence of artificial hip joint, bilateral; Z88.6 Allergy status to analgesic agent; Z88.1 Allergy status to other antibiotic agents; Z88.5 Allergy status to narcotic agent; Z82.3 Family history of stroke
CPT/HCPCS: 36415; 71046; 80048; 80053; 81001; 83036; 83605; 83735; 83880; 84484; 85025; 85610; 85730; 87040; 87086; 87502; 93306; 94640; 94760; 96365; 96366; 99285

== ENCOUNTER 2019-03-25 14:04 | Inpatient (IN) | payer MEDICARE ==
[2019-03-25 14:23] LABS: Glucose,Whole Blood 191 mg/dL (75-99)
[2019-03-25] MEDS ORDERED: SODIUM CHLORIDE 0.9% 1,000 ML IV STA ×2 (14:27)
--- NOTE | 2019-03-25 14:31 | ED ---
Neuro HPI - General Chief Complaint: Neuro Symptoms/Deficit Stated Complaint: Slurred speech Time Seen by Provider: 03/25/19 14:27 Source: family, RN notes reviewed, old records reviewed Mode of arrival: ambulatory - History of Present Illness Is the patient presenting with stroke symptoms?: Yes Last Known Well Date: 03/21/19 Initial Comments: This is an 80-year-old female the ER for evaluation. Patient presenting with 5 days of difficulty with speaking slurred speech in family unable is understandable patient is staying. Patient denies headache or pain. Patient unable to provide history of" answers to questions. Patient was recently treated for flu. Patient denies questions of pain or other symptoms. Patient's family gives history Location: speech, dysarthria History of same: No Place: home Severity: moderate Improves With: time Worsens With: none Associated Symptoms: confusion - Related Data Home Medications: Home Medications Medication Instructions Recorded Confirmed Ascorbic Acid [Vitamin C] 500 mg PO DAILY 03/23/15 03/25/19 Aspirin 81 mg PO DAILY 03/23/15 03/25/19 Calcium Carbonate/Vitamin D3 1 cap PO DAILY 03/23/15 03/25/19 [Calcium 600-Vit D3 400 Tablet] Cinnamon Bark [Cinnamon] 1,000 mg PO HS 03/23/15 03/25/19 Levothyroxine Sodium [Levoxyl] 75 mcg PO QAM 03/23/15 03/25/19 Metoprolol Tartrate 50 mg PO BID 03/23/15 03/25/19 Multivitamin with Iron [Daily 1 tab PO DAILY 03/23/15 03/25/19 Multivitamin with Iron] Harwood-3 Fatty Acids/Fish Oil [Fish 1 cap PO DAILY 03/23/15 03/25/19 Oil 1,000 mg Softgel] Simvastatin 10 mg PO HS 03/23/15 03/25/19 amLODIPine BESYLATE [Amlodipine 5 mg PO QAM 03/23/15 03/25/19 Besylate] rOPINIRole HCL 0.5 mg PO HS 03/23/15 03/25/19 Ergocalciferol [Vitamin D2 50,000 unit PO QMONTH 04/06/16 03/25/19 (DRISDOL)] Ferrous Sulfate [Iron (65 MG 325 mg PO DAILY 04/06/16 03/25/19 Elemental)] Furosemide [Lasix] 20 mg PO QAM 04/06/16 03/25/19 Omeprazole 20 mg PO HS 04/06/16 03/25/19 ALPRAZolam [Xanax] 0.5 mg PO DAILY PRN 03/13/19 03/25/19 predniSONE See Taper PO W/SUPPER 03/25/19 03/25/19 Previous Rx's Medication Instructions Recorded Albuterol Inhaler [Ventolin Hfa 1 - 2 puff INHALATION RT-Q6H PRN 03/18/19 Inhaler] #1 inhaler Allergies/Adverse Reactions: Allergies Allergy/AdvReac Type Severity Reaction Status Date / Time nitrofurantoin Allergy Rash/Hives Verified 03/25/19 14:32 [From Macrobid] nitrofurantoin Allergy Rash/Hives Verified 03/25/19 14:32 macrocrystalline [From Macrobid] adhesive AdvReac tears skin Verified 03/25/19 14:32 ibuprofen [From Motrin] AdvReac Vomiting Verified 03/25/19 14:32 isosorbide AdvReac Rash/Hives Verified 03/25/19 14:32 mepivacaine HCl AdvReac Unknown Verified 03/25/19 14:32 [From Carbocaine] morphine AdvReac Nausea & Verified 03/25/19 14:32 Vomiting ofloxacin [From Floxin] AdvReac Hallucinati Verified 03/25/19 14:32 ons Review of Systems ROS Statement: Those systems with pertinent positive or pertinent negative responses have been documented in the HPI. ROS Other: All systems not noted in ROS Statement are negative. General Exam - General Exam Comments Initial Comments: epressive aphasia General appearance: alert, in no apparent distress Head exam: Present: atraumatic, normocephalic, normal inspection Eye exam: Present: normal appearance, PERRL, EOMI. Absent: scleral icterus, conjunctival injection, periorbital swelling ENT exam: Present: normal exam, mucous membranes moist Neck exam: Present: normal inspection. Absent: tenderness, meningismus, lymphadenopathy Respiratory exam: Present: normal lung sounds bilaterally. Absent: respiratory distress, wheezes, rales, rhonchi, stridor Cardiovascular Exam: Present: regular rate, normal rhythm, normal heart sounds. Absent: systolic murmur, diastolic murmur, rubs, gallop, clicks GI/Abdominal exam: Present: soft, normal bowel sounds. Absent: distended, tenderness, guarding, rebound, rigid Extremities exam: Present: normal inspection, full ROM, normal capillary refill. Absent: tenderness, pedal edema, joint swelling, calf tenderness Back exam: Present: normal inspection Neurological exam: Present: alert, oriented X3, CN II-XII intact Psychiatric exam: Present: normal affect, normal mood Skin exam: Present: warm, dry, intact, normal color. Absent: rash Stroke MDM - Lab Data Result diagrams: 03/25/19 14:40 03/25/19 14:40 Lab Results 03/25/19 03/25/19 03/25/19 Range/Units 14:22 14:40 14:40 WBC 11.5 H (3.8-10.6) k/uL RBC 3.63 L (3.80-5.40) m/uL Hgb 11.4 (11.4-16.0) gm/dL Hct 34.3 (34.0-46.0) % MCV 94.7 D (80.0-100.0) fL MCH 31.4 (25.0-35.0) pg MCHC 33.1 (31.0-37.0) g/dL RDW 14.1 (11.5-15.5) % Plt Count 312 (150-450) k/uL Neutrophils % 85 % Lymphocytes % 9 % Monocytes % 5 % Eosinophils % 0 % Basophils % 0 % Neutrophils # 9.7 H (1.3-7.7) k/uL Lymphocytes # 1.0 (1.0-4.8) k/uL Monocytes # 0.5 (0-1.0) k/uL Eosinophils # 0.0 (0-0.7) k/uL Basophils # 0.0 (0-0.2) k/uL PT (9.0-12.0) sec INR (<1.2) APTT (22.0-30.0) sec Sodium 132 L (137-145) mmol/L Potassium 4.0 (3.5-5.1) mmol/L Chloride 98 (98-107) mmol/L Carbon Dioxide 24 (22-30) mmol/L Anion Gap 10 mmol/L BUN 37 H (7-17) mg/dL Creatinine 1.17 H (0.52-1.04) mg/dL Est GFR (CKD-EPI)AfAm 48 (>60 ml/min/1.73 sqM) Est GFR (CKD-EPI)NonAf 42 (>60 ml/min/1.73 sqM) Glucose 159 H (74-99) mg/dL POC Glucose (mg/dL) 191 H (75-99) mg/dL POC Glu French F[employer] Operator Julieth Galvan Calcium 9.4 (8.4-10.2) mg/dL Total Bilirubin 0.5 (0.2-1.3) mg/dL AST 22 (14-36) U/L ALT 40 (9-52) U/L Alkaline Phosphatase 51 (38-126) U/L Troponin I (0.000-0.034) ng/mL Total Protein 5.7 L (6.3-8.2) g/dL Albumin 3.6 (3.5-5.0) g/dL Urine Color Urine Appearance (Clear) Urine pH (5.0-8.0) Ur Specific [place] (1.001-1.035) Urine Protein (Negative) Urine Glucose (UA) (Negative) Urine Ketones (Negative) Urine Blood (Negative) Urine Nitrite (Negative) Urine Bilirubin (Negative) Urine Urobilinogen (<2.0) mg/dL Ur Leukocyte Esterase (Negative) 03/25/19 03/25/19 03/25/19 Range/Units 14:40 14:40 16:13 WBC (3.8-10.6) k/uL RBC (3.80-5.40) m/uL Hgb (11.4-16.0) gm/dL Hct (34.0-46.0) % MCV (80.0-100.0) fL MCH (25.0-35.0) pg MCHC (31.0-37.0) g/dL RDW (11.5-15.5) % Plt Count (150-450) k/uL Neutrophils % % Lymphocytes % % Monocytes % % Eosinophils % % Basophils % % Neutrophils # (1.3-7.7) k/uL Lymphocytes # (1.0-4.8) k/uL Monocytes # (0-1.0) k/uL Eosinophils # (0-0.7) k/uL Basophils # (0-0.2) k/uL PT 10.3 (9.0-12.0) sec INR 1.0 (<1.2) APTT 20.1 L (22.0-30.0) sec Sodium (137-145) mmol/L Potassium (3.5-5.1) mmol/L Chloride (98-107) mmol/L Carbon Dioxide (22-30) mmol/L Anion Gap mmol/L BUN (7-17) mg/dL Creatinine (0.52-1.04) mg/dL Est GFR (CKD-EPI)AfAm (>60 ml/min/1.73 sqM) Est GFR (CKD-EPI)NonAf (>60 ml/min/1.73 sqM) Glucose (74-99) mg/dL POC Glucose (mg/dL) (75-99) mg/dL POC Glu French Folding Machine Operator ID Calcium (8.4-10.2) mg/dL Total Bilirubin (0.2-1.3) mg/dL AST (14-36) U/L ALT (9-52) U/L Alkaline Phosphatase (38-126) U/L Troponin I 0.014 (0.000-0.034) ng/mL Total Protein (6.3-8.2) g/dL Albumin (3.5-5.0) g/dL Urine Color Colorless Urine Appearance Clear (Clear) Urine pH 6.5 (5.0-8.0) Ur Specific [place] 1.006 (1.001-1.035) Urine Protein Trace H (Negative) Urine Glucose (UA) Negative (Negative) Urine Ketones Negative (Negative) Urine Blood Negative (Negative) Urine Nitrite Negative (Negative) Urine Bilirubin Negative (Negative) Urine Urobilinogen <2.0 (<2.0) mg/dL Ur Leukocyte Esterase Negative (Negative) - NIH Stroke Scale 1a. Level of Consciousness: (0) alert 1b. LOC Questions: (2) answers no questions correctly 1c. LOC Commands: (0) performs tasks correctly 2. Best Gaze: (0) normal 3. Visual: (0) no visual loss 4. Facial Palsy: (0) normal symmetrical movement 5a. Motor Arm Left: (0) no drift 5b. Motor Arm Right: (0) no drift 6a. Motor Leg Left: (0) no drift 6b. Motor Leg Right: (0) no drift 7. Limb Ataxia: (0) absent 8. Sensory: (0) normal 9. Best Language: (2) severe aphasia 10. Dysarthria: (0) normal 11. Extinction/Inattention: (0) no abnormality - Thrombolytic Inclusion/Exclusion Thrombolytic Exclusion Criteria: Symptom Onset > 3 Hours (CT brain CTA had not negative for acute disease) - Medical Decision Making 80 female the ER for evaluation of expressive receptive aphasia. Patient will admit for evaluation and further neurological examination. - Radiology Data Radiology results: report reviewed (EKG shows sinus tachycardia 50, W[place] 14, QRS 150, QRS 463), image reviewed Past Medical History Past Medical History: Coronary Artery Disease (CAD), Cancer, Chest Pain / Angina, Heart Failure, Diabetes Mellitus, Hyperlipidemia, Hypertension, Memory Impairment, Osteoarthritis (OA), Renal Disease, Skin Disorder Additional Past Medical History / Comment(s): Diabetes type II-diet controlled, fragile skin, chronic kidney disease being monitored, sciatica, Giant Cell Ateritis, anemia, peripheral edema, skin cancer with removal, hypothyroid, RLS, DJD, osteopenia, some urinary incontinence. History of Any Multi-Drug Resistant Organisms: None Reported Past Surgical History: Appendectomy, Heart Catheterization With Stent, Hysterectomy, Joint Replacement, Orthopedic Surgery Additional Past Surgical History / Comment(s): 04/18/16 Total L hip arthroplasty anterior approach. Other surgical hx: Cataract Surgery maryam eyes, skin ca removed, 2009 heart stents x 3, RAÚL, temporal artery bx, total R hip arthropla sty, skin ca removal. Past Anesthesia/Blood Transfusion Reactions: No Reported Reaction Additional Past Anesthesia/Blood Transfusion Reaction / Comment(s): Pt states she has received blood in the past without reaction. Date of Last Stent Placement:: 2009 Past Psychological History: No Psychological Hx Reported Smoking Status: Never smoker Past Alcohol Use History: None Reported Past Drug Use History: None Reported - Past Family History Mother Family Medical History: CVA/TIA Additional Family Medical History / Comment(s): Mother of a CVA at the age of 83 yrs. Father Additional Family Medical History / Comment(s): 80's Course Vital Signs 03/25/19 03/25/19 03/25/19 14:11 14:20 14:30 Temperature 97.5 F L Pulse Rate 52 L Respiratory 20 Rate Blood Pressure 149/60 160/73 O2 Sat by Pulse 99 99 99 Oximetry 03/25/19 03/25/19 03/25/19 15:00 15:30 16:00 Temperature Pulse Rate 55 L 56 L Respiratory 16 11 L Rate Blood Pressure 151/66 161/64 162/64 O2 Sat by Pulse Oximetry - Reevaluation(s) Reevaluation #1: 03/25/19 17:23 Medical record is reviewed Reevaluation #2: 03/25/19 17:23 Patient has no improvement in symptoms Disposition Clinical Impression: Cerebrovascular accident, Expressive aphasia Disposition: ADMITTED IP TO THIS HOSP Condition: Fair Is patient prescribed a controlled substance at d/c from ED?: No Referrals: Giovanni Luke MD [Primary Care Provider] - 1-2 days
[2019-03-25 14:55] LABS: Basophils % (A) 0 %; Eosinophils % (A) 0 %; HCT 34.3 % (34.0-46.0); HGB 11.4 gm/dL (11.4-16.0); Lymphocytes % (A) 9 %; MCH 31.4 pg (25.0-35.0); MCHC 33.1 g/dL (31.0-37.0); Mean Platelet Volume 7.5; Monocytes # (A) 0.5 k/uL (0-1.0); Monocytes % (A) 5 %; Neutrophils # (A) 9.7 k/uL (1.3-7.7); Neutrophils % (A) 85 %; Platelet Count 312 k/uL (150-450); RBC 3.63 m/uL (3.80-5.40); RDW 14.1 % (11.5-15.5); WBC 11.5 k/uL (3.8-10.6)
[2019-03-25 15:08] LABS: Albumin 3.6 g/dL (3.5-5.0); Calcium 9.4 mg/dL (8.4-10.2); Total Bilirubin 0.5 mg/dL (0.2-1.3); Total Protein 5.7 g/dL (6.3-8.2)
[2019-03-25 15:20] LABS: Prothrombin Time 10.3 sec (9.0-12.0)
[2019-03-25 15:26] LABS: Partial Thromboplastin Time 20.1 sec (22.0-30.0)
[2019-03-25 15:28] LABS: MCV 94.7 fL (80.0-100.0)
--- NOTE | 2019-03-25 15:59 | XR ---
EXAMINATION TYPE: XR chest 2V DATE OF EXAM: 03/25/2019 COMPARISON: Prior chest x-ray 03/13/2019 HISTORY: Altered mental status, coronary artery disease TECHNIQUE: Frontal and lateral views of the chest are obtained. FINDINGS: There are overlying cardiac leads and the patient is rotated. There is no focal air space o pacity, pleural effusion, or pneumothorax seen. The cardiac silhouette size is stable. The aorta is dense. Coronary artery calcifications are present. Prominent lung volumes could be indicative of unde rlying COPD. The osseous structures are intact. IMPRESSION: No acute cardiopulmonary process.
[2019-03-25 16:20] LABS: Appearance,Urine Clear (Clear); Bilirubin,Urine Negative (Negative); Blood,Urine Negative (Negative); Color,Urine Colorless; Glucose,Urine (UA) Negative (Negative); Ketones,Urine Negative (Negative); Leukocyte Esterase,Urine Negative (Negative); Nitrite,Urine Negative (Negative); PH, Urine 6.5 (5.0-8.0); Protein,Urine Trace (Negative); Specific Gravity,Urine 1.006 (1.001-1.035); Urobilinogen,Urine <2.0 mg/dL (<2.0)
--- NOTE | 2019-03-25 16:33 | CT ---
EXAMINATION TYPE: CT brain wo con DATE OF EXAM: 03/25/2019 COMPARISON: 01/22/2019 HISTORY: 88 year-old female female with neurologic deficits, Confusion per family TECHNIQUE: Examination was done in axial plane without intravenous contrast. Coronal and sagittal r econstructions performed. CT DLP: 694.9 mGycm Automated exposure control for dose reduction was used. FINDINGS: There is no evidence of acute intracranial hemorrhage, acute ischemic changes, mass, mass-effect, or extra-axial fluid collection. There is no effacement of cerebral sulci or basal subarachnoid cister ns. There is no hydrocephalus. There is no midline shift. Suarez-white matter distinction is preserv ed. There is moderate generalized supratentorial volume loss and moderate patchy white matter hypodensiti es in both cerebral hemispheres. Mild ventriculomegaly is unchanged and likely relates to central cerebral atrophy. Paranasal sinuses and mastoid air cells well pneumatized. Orbits and globes are intact. IMPRESSION: Moderate atrophy and secondary ex vacuo mild ventriculomegaly, unchanged from 01/22/2019. Moderate pat ulises changes of chronic small vessel ischemic disease. No intracranial abnormality seen.
--- NOTE | 2019-03-25 16:46 | CT ---
EXAMINATION TYPE: CT angio head neck DATE OF EXAM: 03/25/2019 COMPARISON: Correlation CT brain same day HISTORY: 88-year-old female confusion per family. Neurologic deficits. TECHNIQUE: Contiguous axial scanning of the head and neck performed with IV Contrast, patient injecte d with 50 mL of Isovue 370. Coronal/sagittal MIP reconstructions performed. 3-D reconstructions gener ated on a dedicated workstation. CT DLP: 320.8 mGycm Automated exposure control for dose reduction was used. FINDINGS: Neck: Mild atherosclerotic arch calcifications. Conventional arch vessel branching anatomy. The brachiocephalic, right common, and right internal iliac arteries are widely patent with only mini mal microscopic calcification at the bifurcation. The left common carotid and internal carotid artery are patent with minimal episodic calcifications a t the bifurcation. Mild atherosclerotic calcification at the origin of the left subclavian artery. The vertebral arteries are codominant and patent throughout with prominent tortuosity along the V1 se gments. Moderate to advanced spondylotic change throughout the cervical spine. Head: Very mild apical scarring calcifications within the carotid siphons. The vertebral, basilar, internal carotid arteries are patent without significant stenosis. Hypoplastic A1 segment right anterior cerebral artery is unable to exclude a 3 mm right-sided anterio r communicating artery aneurysm, axial image 24. There is suggestion of a moderate focal stenosis of the right M1 bifurcation, refer to series 506 cor onal image 12. Additional bget-ne-ejnauypi caliber narrowing involving the mid M1 segment left middle cerebral arter y. There is opacification of more distal anterior and posterior circulation branches. There is no large vessel intracranial arterial occlusion. IMPRESSION: NECK: 1. THE CAROTID AND VERTEBRAL ARTERIES OF THE NECK REMAIN WIDELY PATENT. HEAD: 1. HYPOPLASTIC A1 SEGMENT RIGHT ANTERIOR CEREBRAL ARTERY. UNABLE TO EXCLUDE A 3 MM ACOM ANEURYSM. 2. MODERATE FOCAL STENOSIS AT THE RIGHT M1 BIFURCATION OF THE MIDDLE CEREBRAL ARTERY. 3. MILD TO MODERATE CALIBER NARROWING INVOLVING THE MID AND DISTAL M1 SEGMENT LEFT MCA. 4. NO LARGE VESSEL INTRACRANIAL ARTERIAL OCCLUSION SEEN.
[2019-03-25] MEDS ORDERED: ASPIRIN 325 MG TAB PO STA (18:23)
[2019-03-25] MEDS: SODIUM CHLORIDE 0.9% 1,000 ML IV SCH (18:59)
[2019-03-25] MEDS ORDERED: ALBUTEROL NEBULIZED 2.5 MG/3 ML INHALATION PRN (22:01)
[2019-03-25] MEDS ORDERED: ALPRAZolam 0.5 MG TAB PO SCH (22:15)
[2019-03-25] MEDS ORDERED: predniSONE 10 MG TAB PO SCH (22:15)
[2019-03-25 22:21] LABS: Glucose,Whole Blood 112 mg/dL (75-99)
[2019-03-25] MEDS: ATORVASTATIN 80 MG TAB PO SCH (22:52)
[2019-03-25] MEDS: predniSONE 20 MG TAB PO SCH (22:52)
[2019-03-25] MEDS: METOPROLOL TARTRATE 50 MG TAB PO SCH (22:52)
[2019-03-26] MEDS: SODIUM CHLORIDE 0.9% 1,000 ML IV SCH ×2 (05:42→17:34)
[2019-03-26 06:20] LABS: Glucose,Whole Blood 140 mg/dL (75-99)
[2019-03-26 06:50] LABS: Appearance,Urine Clear (Clear); Bilirubin,Urine Negative (Negative); Blood,Urine Negative (Negative); Calcium Oxalate Crystals,Urine Rare /hpf; Color,Urine Light Yellow; Glucose,Urine (UA) Negative (Negative); Ketones,Urine Negative (Negative); Leukocyte Esterase,Urine Negative (Negative); Nitrite,Urine Negative (Negative); Protein,Urine 1+ (Negative); RBC,Urine <1 /hpf (0-5); Specific Gravity,Urine 1.018 (1.001-1.035); Urobilinogen,Urine <2.0 mg/dL (<2.0); WBC,Urine <1 /hpf (0-5)
[2019-03-26] MEDS: LEVOTHYROXINE 75 MCG TAB PO SCH (06:57)
[2019-03-26] MEDS: INSULIN ASPART (NovoLOG) 100 UNIT/ML VIAL SQ SCH ×4 (07:01→21:52)
[2019-03-26 07:37] LABS: Cholesterol 151 mg/dL (<200); HDL Cholesterol 64 mg/dL (40-60); LDL Cholesterol,Calculated 70 mg/dL (0-99); Triglycerides 84 mg/dL (<150)
[2019-03-26] MEDS: METOPROLOL TARTRATE 50 MG TAB PO SCH ×2 (08:07→21:10)
[2019-03-26] MEDS: FUROSEMIDE 20 MG TAB PO SCH (08:07)
[2019-03-26] MEDS: MULTIVITAMINS, THERA 1 EACH TAB PO SCH (08:07)
[2019-03-26] MEDS: CALCIUM CARB-VIT D 500MG-200UN 1 EACH TAB PO SCH (08:07)
[2019-03-26] MEDS: ASPIRIN 81 MG PO SCH (08:09)
[2019-03-26] MEDS: ASCORBIC ACID 500 MG TAB PO SCH (08:09)
[2019-03-26] MEDS: FERROUS SULFATE 325 MG TAB PO SCH (08:09)
[2019-03-26] MEDS: amLODIPine 5 MG TAB PO SCH (08:09)
[2019-03-26] MEDS ORDERED: ASPIRIN 325 MG TAB PO SCH (09:00)
[2019-03-26] MEDS ORDERED: NON-FORMULARY DRUG (Omega-3 Fatty Acids/Fish Oil [Fish Oil 1,000 Mg Softgel] 1 CAP) PO SCH (09:00)
[2019-03-26] MEDS ORDERED: ALPRAZolam 0.5 MG TAB PO SCH ×2 (09:00→21:00)
--- NOTE | 2019-03-26 09:11 | P.CNNES ---
History of Present Illness Consult date: 03/26/19 Requesting physician: Jas Forde Reason for Consult: CVA Chief complaint: Speech disturbance x 5 days History of Present Illness: This is an 88-year-old female, handedness unknown, who presented to the hospital with a five-day history of language disturbance according to family. Patient cannot provide meaningful history this morning. Per my medical records for review, patient has a history of hypertension, diabetes mellitus type 2, dyslipidemia, congestive heart failure, coronary artery disease status post multiple coronary stenting and history of cognitive impairment. Patient was recently hospitalized at a facility for influenza, possible reactive bronchospasm and prerenal azotemia. The patient was treated symptomatically and reportedly improved and was discharged 3 days post admission. Review of Systems ROS unobtainable: due to mental status Past Medical History Past Medical History: Coronary Artery Disease (CAD), Cancer, Chest Pain / Angina, Heart Failure, Diabetes Mellitus, Hyperlipidemia, Hypertension, Memory Impairment, Osteoarthritis (OA), Renal Disease, Skin Disorder Additional Past Medical History / Comment(s): Diabetes type II-diet controlled, fragile skin, chronic kidney disease being monitored, sciatica, Giant Cell Ateritis, anemia, peripheral edema, skin cancer with removal, hypothyroid, RLS, DJD, osteopenia, some urinary incontinence. History of Any Multi-Drug Resistant Organisms: None Reported Past Surgical History: Appendectomy, Heart Catheterization With Stent, Hysterectomy, Joint Replacement, Orthopedic Surgery Additional Past Surgical History / Comment(s): 04/18/16 Total L hip arthroplasty anterior approach. Other surgical hx: Cataract Surgery maryam eyes, skin ca removed, 2009 heart stents x 3, RAÚL, temporal artery bx, total R hip arthroplasty, skin ca removal. Past Anesthesia/Blood Transfusion Reactions: No Reported Reaction Additional Past Anesthesia/Blood Transfusion Reaction / Comment(s): Pt states she has received blood in the past without reaction. Date of Last Stent Placement:: 2009 Past Psychological History: No Psychological Hx Reported Additional Psychological History / Comment(s): Pt takes xanax to sleep not for anxiety. Pt resides with her spouse. She uses a walker or a cane to ambulate. She no longer drives-her spouse does or her shilpi will take her to appts. She has a glucometer. Smoking Status: Never smoker Past Alcohol Use History: None Reported Past Drug Use History: None Reported - Past Family History Mother Family Medical History: CVA/TIA Additional Family Medical History / Comment(s): Mother of a CVA at the age of 83 yrs. Father Additional Family Medical History / Comment(s): 80's Medications and Allergies Home Medications Medication Instructions Recorded Confirmed Type Ascorbic Acid [Vitamin C] 500 mg PO DAILY 03/23/15 03/25/19 History Aspirin 81 mg PO DAILY 03/23/15 03/25/19 History Calcium Carbonate/Vitamin D3 1 cap PO DAILY 03/23/15 03/25/19 History [Calcium 600-Vit D3 400 Tablet] Cinnamon Bark [Cinnamon] 1,000 mg PO HS 03/23/15 03/25/19 History Levothyroxine Sodium [Levoxyl] 75 mcg PO QAM 03/23/15 03/25/19 History Metoprolol Tartrate 50 mg PO BID 03/23/15 03/25/19 History Multivitamin with Iron [Daily 1 tab PO DAILY 03/23/15 03/25/19 History Multivitamin with Iron] [place]-3 Fatty Acids/Fish Oil [Fish 1 cap PO DAILY 03/23/15 03/25/19 History Oil 1,000 mg Softgel] Simvastatin 10 mg PO HS 03/23/15 03/25/19 History amLODIPine BESYLATE [Amlodipine 5 mg PO QAM 03/23/15 03/25/19 History Besylate] rOPINIRole HCL 0.5 mg PO HS 03/23/15 03/25/19 History Ergocalciferol [Vitamin D2 50,000 unit PO QMONTH 04/06/16 03/25/19 History (DRISDOL)] Ferrous Sulfate [Iron (65 MG 325 mg PO DAILY 04/06/16 03/25/19 History Elemental)] Furosemide [Lasix] 20 mg PO QAM 04/06/16 03/25/19 History Omeprazole 20 mg PO HS 04/06/16 03/25/19 History ALPRAZolam [Xanax] 0.5 mg PO DAILY PRN 03/13/19 03/25/19 History Albuterol Inhaler [Ventolin Hfa 1 - 2 puff INHALATION RT-Q6H PRN 03/18/19 03/25/19 Rx Inhaler] #1 inhaler predniSONE See Taper PO W/SUPPER 03/25/19 03/25/19 History Allergies Allergy/AdvReac Type Severity Reaction Status Date / Time nitrofurantoin Allergy Rash/Hives Verified 03/25/19 14:32 [From Macrobid] nitrofurantoin Allergy Rash/Hives Verified 03/25/19 14:32 macrocrystalline [From Macrobid] adhesive AdvReac tears skin Verified 03/25/19 14:32 ibuprofen [From Motrin] AdvReac Vomiting Verified 03/25/19 14:32 isosorbide AdvReac Rash/Hives Verified 03/25/19 14:32 mepivacaine HCl AdvReac Unknown Verified 03/25/19 14:32 [From Carbocaine] morphine AdvReac Nausea & Verified 03/25/19 14:32 Vomiting ofloxacin [From Floxin] AdvReac Hallucinati Verified 03/25/19 14:32 ons Physical Examination - Vital Signs Vital Signs: Vital Signs Temp Pulse Pulse Resp BP BP Pulse Ox 03/26/19 08:20 98.2 F 55 L 16 157/67 96 03/26/19 08:11 97 03/26/19 04:00 97.9 F 50 L 18 134/60 97 03/26/19 00:00 97.7 F 60 18 155/78 97 03/25/19 21:23 97.9 F 62 19 160/79 97 03/25/19 21:00 62 19 162/64 97 03/25/19 20:34 98.0 F 57 L 18 177/73 98 03/25/19 20:23 98.0 F 57 L 18 177/73 98 03/25/19 20:00 53 L 16 155/78 96 03/25/19 19:32 58 L 16 155/78 03/25/19 19:00 58 L 19 165/69 99 03/25/19 18:30 58 L 11 L 163/68 99 03/25/19 18:01 55 L 14 160/65 97 03/25/19 17:30 51 L 14 155/64 99 03/25/19 17:00 49 L 11 L 153/66 03/25/19 16:30 50 L 15 172/68 99 03/25/19 16:00 56 L 11 L 162/64 03/25/19 15:30 55 L 16 161/64 03/25/19 15:00 151/66 05/14/19 14:30 160/73 99 05/14/19 14:20 99 03/25/19 14:11 97.5 F L 52 L 20 149/60 99 Intake and Output 03/25/19 03/26/19 03/26/19 22:59 06:59 14:59 Intake Total 500 200 Output Total 450 450 Balance 50 -250 Intake: Intake, IV Titration 500 200 Amount Sodium Chloride 0.9% 1, 500 200 000 ml @ 100 mls/hr IV . Q10H NBA Rx#:[id number] Output: Urine 450 450 Other: Voiding Method Bedside Commode # Voids 1 1 Weight 47 kg Gen NAD Pleasant HEENT NCAT Sclera without icterus O/P clear Neck Supple No carotid bruit Cor RRR no m/r/g Lungs CTAB Abd Soft NTND +BS Ext Warm to touch No edema Neuro MS Alert Trying to converse with examiner but oriented x 0 cannot tell me her name, place, time or reason Paucity of speech. Able to follow basic one-step commands but has difficulty with multistep commands. For example, she is able to fruit raiser on command (not grasp reflex) but unable to open palm on command. CN PERRL Blinks to threat bilaterally EOMI no nystagmus or LAUREN No facial asymmetry Masseter's symmetric Hearing appears to be intact to normal voice bilaterally Speech not dysarthric Equal elevation of palate Tongue midline Sym SCM bilaterally Motor Normal bulk Bilateral paratonia No pronator or leg drift or tremors RAPHAEL x4 antigravity + but cannot test individual muscle group testing due to lack of cooperation Sens Intact to LT x4 No obvious neglect Coord No apparent dysmetria as she grabs onto my hand with each of hers DTRs 1+/4 sym throughout Toes mute bilaterally No clonus at achilles Gait Deferred Results Total cholesterol this morning is 151 HDL 64 LDL 70 hemoglobin A1c was 6.7 on 03/17/2019. CT head without contrast 03/25/2019. Moderate atrophy and secondary ex vacuo ventriculomegaly, unchanged from 01/22/2019 exam. Moderate patchy changes of chronic small vessel ischemic disease. No acute intracranial abnormality is seen. CT angiogram head and neck with contrast 03/25/2019. The carotid and vertebral arteries of the neck remained widely patent. Hypoplastic A1 segment in the right anterior cerebral artery. Unable to exclude a 3 mm A, aneurysm. Moderate focal stenosis at the right M1 bifurcation of the middle cerebral artery. Mild to moderate caliber narrowing involving the mid and distal M1 segment of the left MCA. No proximal vessel intracranial artery occlusion is seen. Transthoracic echocardiogram 03/14/2019. Left ventricular size is normal. There is mild concentric left ventricular hypertrophy. Overall left ventricular systolic function is normal with an ejection fraction between 55-60%. Right ventricle is mildly enlarged. There is moderate left atrial enlargement. Right atrial size is normal. Aortic valve is mildly thickened. There is mild mitral regurgitation and trace tricuspid regurgitation. I have reviewed all neuroimages myself. - Laboratory Findings CBC and BMP: 03/25/19 14:40 03/25/19 14:40 Abnormal Lab Findings: Abnormal Labs 03/25/19 03/25/19 03/25/19 14:22 14:40 14:40 WBC 11.5 H RBC 3.63 L Neutrophils # 9.7 H APTT Sodium 132 L BUN 37 H Creatinine 1.17 H Glucose 159 H POC Glucose (mg/dL) 191 H Total Protein 5.7 L HDL Cholesterol Urine Protein Calcium Oxalate Crystal 03/25/19 03/25/19 03/25/19 14:40 16:13 22:01 WBC RBC Neutrophils # APTT 20.1 L Sodium BUN Creatinine Glucose POC Glucose (mg/dL) 112 H Total Protein HDL Cholesterol Urine Protein Trace H Calcium Oxalate Crystal 03/25/19 03/26/19 03/26/19 23:00 06:18 06:52 WBC RBC Neutrophils # APTT Sodium BUN Creatinine Glucose POC Glucose (mg/dL) 140 H Total Protein HDL Cholesterol 64 H Urine Protein 1+ H Calcium Oxalate Crystal Rare H Assessment and Plan Assessment: Language disturbance/expressive and receptive aphasia. Patient has a history of cognitive impairment. It is unclear to me what her baseline is. Her type of aphasia is not particularly localizing. We should pursue further neuro imaging to confirm that she did suffer from a new acute intracranial vascular event. Intracranial large vessel stenosis in the bilateral M1 segments. Plan: -MRI Brain wo caleb to ascertain if indeed patient had a new acute intracranial vascular event. -If she does rule in for CVA, depending on location and whether we think it is symptomatic large vessel disease, may augment antiplatelet therapy, but at this point will keep her on aspirin. -LDL 70 at goal. Atorvastatin maxed at 80mg po qd. -hga1c 6.7 at goal. -TTE was just done earlier this month. Will not re-order. Of note, patient has moderate LAE. If she does rule in for new CVA, depending on appearance, may consider outpatient cardiac monitoring to r/o PAF. -PT/OT/SP per protocol. -DVT prophylaxis. -Will follow up. Thank you for this interesting consult. Please call with ?. Time with Patient: Greater than 30 (Time spent in direct patient care, greater t kerns 50% of which was spent in [id number] counseling and coordination of care, 70 minutes.)
[2019-03-26 12:28] LABS: Glucose,Whole Blood 302 mg/dL (75-99)
--- NOTE | 2019-03-26 14:55 | MR ---
EXAMINATION TYPE: MR brain wo con DATE OF EXAM: 03/26/2019 COMPARISON: CT brain from yesterday. HISTORY: Aphasia per order. Patient is admitted for confusion or acute onset neural deficits yesterda y. TECHNIQUE: Multiplanar, multisequence imaging of the brain and brainstem is performed without IV cont rast. FINDINGS: Diffusion weighted images demonstrate multifocal deep and subcortical areas of increased signal with diminished signal on ADC mapping throughout the left parietal cortex at level posterior watershed wit h possible some posterior superior temporal involvement seen beginning diffusion series 305 image 144 extending inferiorly to image 104. Area show T2 hyperintensity and T1 hypointensity. Findings are co nsistent with evolving acute infarct. No right-sided restricted diffusion is seen. There is no worrisome extra-axial fluid collection. There is ventricular and sulcal prominence redemo nstrated. There are focal and confluent areas of T2 hyperintensity most prominent in the periventricu lar white matter bilaterally redemonstrated. Midline structures demonstrate normal morphology. The craniocervical junction appears within normal limits. Normal vascular flow voids are present. The visualized sinuses are clear and the globes are i ntact. IMPRESSION: 1. 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 2. There is background of moderate diffuse cerebral atrophy and chronic small vessel ischemic change redemonstrated.
[2019-03-26] MEDS ORDERED: LABETALOL 5 MG/ML VIAL MDV IVP PRN (16:50)
[2019-03-26 16:51] LABS: Glucose,Whole Blood 128 mg/dL (75-99)
[2019-03-26] MEDS: predniSONE 20 MG TAB PO SCH (17:34)
[2019-03-26] MEDS ORDERED: CLOPIDOGREL 75 MG TAB PO STA (18:41)
--- NOTE | 2019-03-26 19:08 | P.PN ---
Progress Note - Text Progress Note Date: 03/26/19 Interim event: Called by BELA Delcid this pm regarding MRI Brain that show acute left parietal ischemic infarct. Patient still aphasic. S: Patient cannot provide meaningful history. O: VSS SBP 170 MS Awake and alert oriented to self only Mostly non-sensical speech with receptive>expressive aphasia CN II-XII grossly intact no nystagmus Motor Normal bulk Bilateral paratonia RAPHAEL x4 Sens Intact to LT x4 No neglect Coord Not tested DTRs 2+/4 sym throughout Gait Deferred NIHSS 4 2- orientation 2-severe aphasia MRI Brain wo caleb on 03/26/19 shows patchy areas of restricted diffusion primarily in the left parietal lobe extending into the superior temporal area as well. Global atrophy. T2/FLAIR signal changes in the subcortical white matter consistent with small vessel disease. No ICH. A/P: -Spoke with patient's daughter who confirms patient is right-handed. In this case, this is a dominant hemispheric ischemic infarct that would explain her receptive>expressive aphasia. -Permissive HTN <220/120 for one more day. Sounds like she became symptomatic 6 days ago. If she remains neurologically unchanged, then can start bringing down her BP. -Since she does have left distal M1 stenosis. I am concerned about symptomatic large vessel disease. Based on SAMMPRIS would recommend aspirin 81mg po qd and clopidogrel 75mg 81mg po qd for 90 days, after which can de-escalate to clopidogrel 75mg po qd only. -hga1c <7.0 at goal. -LDL 70 at goal. Continue statin therapy. -Patient does have moderate LAE. To complete her stroke work-up, would recommend 30-day cardiac event monitoring. Spoke with Fahrana CRAMER who will facilitate setting up cardiac follow-up after discharge. -PT/OT/SP per stroke protocol. -Unfortunately, prognosis will depend on her future ability's to participate in rehabilitation. If she cannot understand enough, it will be harder for her to make significant gains. -DVT prophylaxis. d/w patient's daughter at length and Farhana CRAMER. All questions answered. Time spent in direct patient care, greater than 50% of which was spent in kivq-vo-pegh counseling and coordination of care: 45 minutes.
--- NOTE | 2019-03-26 20:17 | HP ---
HISTORY AND PHYSICAL DATE OF SERVICE: 03/25/2019. CHIEF COMPLAINTS: Weakness and slurring of speech. HISTORY OF PRESENT ILLNESS: This 88-year-old woman with a past medical history of multiple medical problems including history of CAD, history of CHF, diabetes Type 2, history of hypertension, hyperlipidemia, history of DJD, history of dementia, history of CAD/stent being followed by Dr. Luke in the outpatient setting was noted to have difficulty in speaking, which was there for almost 5 days. The words are slurred and the patient taken to [facility] and was admitted for further evaluation and treatment. Currently the patient is confused, unable to give coherent history. Most of the history taken from my discussion with staff and review of chart at this time. PAST MEDICAL HISTORY: History of coronary artery disease, chest pain, CHF, diabetes type 2 and hypertension, hyperlipidemia, history of memory impairment, history of DJD, appendectomy, CAD, history of stent. MEDICATIONS: Prior to admission include home medications are: 1. Requip 0.5 mg p.o. q.h.s. 2. Prednisone with supper. 3. Norvasc 5 mg daily. 4. Omeprazole 20 mg q.h.s. 5. Fish oil 1 p.o. daily. 6. Daily multivitamin. 7. Metoprolol 50 mg p.o. b.i.d. 8. Levoxyl 75 mcg p.o. q.a.m. 9. Lasix 20 mg q.a.m. 10.Iron 320 mg p.o. daily. 11.Drisdol 52376 p.o. Q monthly. 12.Cinnamon 1 g q.h.s. 13.Calcium with vitamin D 1 p.o. daily. 14.Aspirin 81 mg. 15.Vitamin C 500 mg p.o. daily. 16.Ventolin HFA 1-2 puffs q.6h p.r.n. 17.Xanax 0.5 daily p.r.n. 18.Glucotrol. ALLERGIES: NITROFURANTOIN, ADHESIVES, MOTRIN, IMDUR, CARBOCAINE, AND MORPHINE, FLOXIN. FAMILY HISTORY: History of CVA/TIA. REVIEW OF SYSTEMS: Social history and review of systems could not be taken because the patient is confused. PHYSICAL EXAM: Patient is conscious, oriented x1. Pulse 48, blood pressure 140/57, respiration 18, temperature 97.2, pulse ox 97% on room air. HEENT: Conjunctivae normal. Oral mucosa moist. NECK is no jugular venous distention. No carotid bruit. No lymph node enlargement. CARDIOVASCULAR SYSTEM: S1, S2 muffled. RESPIRATORY SYSTEM: Breath sounds diminished at the bases. A few scattered rhonchi. ABDOMEN: Soft, nontender. No mass palpable. LEGS: No edema. No swelling. NERVOUS SYSTEM: Higher functions as mentioned earlier. Moves all 4 limbs. Mild diffuse weakness present. LYMPHATICS: No lymph nodes palpable in the neck, axillae or groin. JOINTS: No active deforming arthropathy. SKIN: No ulcer, rash, bleeding. The speech is dysarthric and dysphasic. LABS: At this time show WBC 11.8, hemoglobin 11.4, sodium is 138, potassium 4, and glucose 159. ASSESSMENT: 1. Dysarthria, dysphagia for evaluation, possible acute transient ischemic attack, rule out acute stroke. 2. Dementia. 3. Coronary artery disease. 4. Congestive heart failure. 5. Diabetes mellitus type 2. 6. Hypertension. 7. Hyperlipidemia. 8. History of degenerative joint disease. 9. History of coronary artery disease/stent. 10.Previous history of . 11.NO CODE, NO CPR. NO VENT. RECOMMENDATIONS AND DISCUSSION: In this 88 -year-old woman who presented with multiple complex medical issues. We will monitor the patient closely. Continue to current medications, continue symptomatic treatment. Otherwise, closely monitor. Neurology evaluation and I would also recommend neurovascular work also. Prognosis guarded because of multiple complex medical issues. Further recommendations to follow. A copy of dictation being forwarded to Dr. Luke who is the primary care physician. MMODL / IJN: [id number] / [facility]
--- NOTE | 2019-03-26 20:32 | PN ---
PROGRESS NOTE DATE OF SERVICE: 03/26/2019 This 88-year-old woman who was admitted with features of acute dysarthria and dysphagia, also considered to have either TIA or for stroke. Neurology has seen the patient and recommend MRI at this time. The patient also mildly confused according to the daughter. PAST MEDICAL HISTORY: Reviewed. REVIEW OF SYSTEMS: Review of systems could not be taken, the patient has been confused. CURRENT MEDICATIONS: Reviewed and include: 1. Ventolin 2.5 q.6h p.r.n. 2. Xanax 0.5 q.h.s. 3. Norvasc 5 mg daily. 4. Vitamin C 500 mg. 5. Aspirin 320 mg daily. 6. Lipitor 80 mg. 7. Os-Bernabe with vitamin D p.o. daily. 8. Vitamin D2 50,000 Q monthly. 9. Iron sulfate 320 mg daily. 10.Lasix 20 mg q.a.m. 11.Synthroid 75 mcg p.o. daily. 12.Lopressor 50 mg p.o. b.i.d. 13.Multivitamins 1 p.o. daily. 14.Protonix 40 mg daily. 15.Prednisone taper. 16.Requip 0.5 mg p.o. q.h.s. PHYSICAL EXAMINATION: The patient is conscious, confused. Pulse 48, blood pressure 150/70, respiration 18, temperature 97.8, pulse ox 97% on room air. HEENT: Conjunctivae normal. Oral mucosa moist. NECK is no jugular venous distention. No carotid bruit. No lymph node enlargement. CARDIOVASCULAR: S1, S1 muffled. RESPIRATIONS: Breath sounds diminished in the bases. A few scattered rhonchi and crackles. ABDOMEN is soft, nontender. LEGS: No edema and no swelling. CENTRAL NERVOUS SYSTEM: Diffusely weak. LABS: WBC 7.2, hemoglobin 11.4, sodium 138, potassium 4, glucose 159, 112. UA noted. ASSESSMENT: 1. Slurring of dizziness speech and weakness, possibly acute transient ischemic attack, rule out acute stroke. 2. Change in mental status possible acute delirium. 3. Increased creatinine for possibly chronic kidney disease stage III. 4. Increased WBC. 5. Hyponatremia. 6. History of coronary artery disease. 7. History of congestive heart failure. 8. Diabetes type 2. 9. Hypertension. 10.Hyperlipidemia. 11.History of dementia. 12.History of chronic kidney disease. 13.History of sciatica. 14.Degenerative arthritis. 15.History of restless legs syndrome. 16.History of degenerative joint disease. 17.History of osteopenia. 18.History of coronary artery disease/stent. RECOMMENDATIONS AND DISCUSSION: In this 88-year-old woman who presented with multiple complex medical issues. We will monitor the patient closely. Continue the current medications, management and symptomatic treatment. We will obtain the neurovascular workup. Neurology evaluation. Patient apparently lives with her spouse, but however, I will get PT/OT evaluation, possible extended care facility rehab. Discussed with daughter at the bedside. We will continue to monitor. Repeat labs will be ordered. Guarded prognosis. Further recommendations to follow. DVT prophylaxis, antiplatelet agents. MMODL / IJN: [id number] /
[2019-03-26] MEDS ORDERED: ALPRAZolam 0.5 MG TAB PO PRN (21:03)
[2019-03-26] MEDS: PANTOPRAZOLE 40 MG TABLET PO SCH (21:10)
[2019-03-26] MEDS: ATORVASTATIN 80 MG TAB PO SCH (21:10)
[2019-03-26 21:53] LABS: Glucose,Whole Blood 217 mg/dL (75-99)
[2019-03-27] MEDS: SODIUM CHLORIDE 0.9% 1,000 ML IV SCH ×3 (01:34→20:24)
[2019-03-27] MEDS: LEVOTHYROXINE 75 MCG TAB PO SCH (06:15)
[2019-03-27 06:27] LABS: Glucose,Whole Blood 178 mg/dL (75-99)
[2019-03-27] MEDS: INSULIN ASPART (NovoLOG) 100 UNIT/ML VIAL SQ SCH ×4 (06:29→21:53)
[2019-03-27 06:43] LABS: HGB 10.4 gm/dL (11.4-16.0); MCH 31.1 pg (25.0-35.0); MCHC 32.6 g/dL (31.0-37.0); MCV 95.4 fL (80.0-100.0); Mean Platelet Volume 7.2; Platelet Count 278 k/uL (150-450); RBC 3.36 m/uL (3.80-5.40); RDW 13.3 % (11.5-15.5); WBC 10.1 k/uL (3.8-10.6)
[2019-03-27 06:53] LABS: Calcium 8.6 mg/dL (8.4-10.2); Potassium 4.1 mmol/L (3.5-5.1)
[2019-03-27] MEDS: METOPROLOL TARTRATE 50 MG TAB PO SCH ×2 (08:20→20:23)
[2019-03-27] MEDS: ASPIRIN 81 MG PO SCH (08:20)
[2019-03-27] MEDS: CLOPIDOGREL 75 MG TAB PO SCH (08:21)
[2019-03-27] MEDS: amLODIPine 5 MG TAB PO SCH (08:21)
[2019-03-27] MEDS: FUROSEMIDE 20 MG TAB PO SCH (08:21)
[2019-03-27] MEDS: FERROUS SULFATE 325 MG TAB PO SCH (08:23)
[2019-03-27] MEDS: ASCORBIC ACID 500 MG TAB PO SCH (08:23)
[2019-03-27] MEDS: CALCIUM CARB-VIT D 500MG-200UN 1 EACH TAB PO SCH (08:23)
[2019-03-27] MEDS: MULTIVITAMINS, THERA 1 EACH TAB PO SCH (08:23)
--- NOTE | 2019-03-27 09:52 | P.PN ---
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 Patient with aphasia and cannot provide meaningful history. Son at bedside with numerous questions. Objective - Vital Signs Vital signs: Vital Signs Temp 98.3 F 03/26/19 20:00 Pulse 57 L 03/27/19 04:00 Resp 16 03/27/19 04:00 BP 168/90 03/27/19 04:00 Pulse Ox 96 03/27/19 04:00 Intake & Output 03/26/19 03/27/19 03/27/19 18:59 06:59 18:59 Intake Total 358 550 30 Output Total 200 Balance 158 550 30 Weight 43.9 kg Intake: Intake, IV Titration 550 Amount Sodium Chloride 0.9% 1, 550 000 ml @ 100 mls/hr IV . Q10H [facility] Rx#:[id number] Oral 358 30 Output: Urine 200 Other: Voiding Method Bedside Commode Toilet # Voids 1 1 # Bowel Movements 1 - Exam MS Awake and alert oriented to self only Mostly non-sensical speech with receptive>expressive aphasia CN II-XII grossly intact no nystagmus Motor Normal bulk Bilateral paratonia RAPHAEL x4 Sens Intact to LT x4 No neglect Coord Not tested DTRs 2+/4 sym throughout Gait Deferred NIHSS 4 2- orientation 2-severe aphasia - Labs CBC & Chem 7: 03/27/19 05:39 03/27/19 05:39 Labs: Abnormal Lab Results - Last 24 Hours (Table) 03/26/19 03/26/19 03/26/19 Range/Units 12:26 16:49 21:09 RBC (3.80-5.40) m/uL Hgb (11.4-16.0) gm/dL Hct (34.0-46.0) % Sodium (137-145) mmol/L Carbon Dioxide (22-30) mmol/L BUN (7-17) mg/dL Glucose (74-99) mg/dL POC Glucose (mg/dL) 302 H 128 H 217 H (75-99) mg/dL 03/27/19 03/27/19 03/27/19 Range/Units 05:39 05:39 06:24 RBC 3.36 L (3.80-5.40) m/uL Hgb 10.4 L (11.4-16.0) gm/dL Hct 32.0 L (34.0-46.0) % Sodium 132 L (137-145) mmol/L Carbon Dioxide 21 L (22-30) mmol/L BUN 24 H (7-17) mg/dL Glucose 166 H (74-99) mg/dL POC Glucose (mg/dL) 178 H (75-99) mg/dL - Imaging and Cardiology MRI - head: image reviewed (MRI Brain wo caleb on 03/26/19 shows patchy areas of restricted diffusion primarily in the left parietal lobe extending into the superior temporal area as well. Global atrophy. T2/FLAIR signal changes in the subcortical white matter consistent with small vessel disease. No ICH. 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 Etiology intracranial atherosclerosis vs proximal embolic phenomenon. 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 Possible 3mm acomm aneurysm, incidental finding. Plan: -Spoke with patient's son at length to answer all his questions to consumer's satisfaction. -Patient remains neurologically unchanged. Can start to bring down BP slowly. -Since she does have left distal M1 stenosis. I am concerned about symptomatic large vessel disease. [facility] would recommend aspirin 81mg po qd and clopidogrel 75mg 81mg po qd for 90 days, after which can de-escalate to clopidogrel 75mg po qd only. -hga1c <7.0 at goal. -LDL 70 at goal. Continue statin therapy. -Patient does have moderate LAE. To complete her stroke work-up, would recommend 30-day cardiac event monitoring. Spoke with Farhana liang [facility] who will facilitate setting up cardiac follow-up after discharge. -PT/OT/SP per stroke protocol. -Unfortunately, prognosis will depend on her future ability's to participate in rehabilitation. If she cannot understand enough, it will be harder for her to make significant gains. -Finally, son has question about the possible 3mm acomm aneurysm. This is an incidental finding and unlikely to explain her CVA. Given its small size and advanced age, treatment is conservative. At times, aneurysms may lead to uoxrrn-ey-vstemu phenomenon that is treated with antiplatelet that patient already takes. -DVT prophylaxis. d/w patient's son regarding my clinical impressions and recs. All questions answered. Time with Patient: Greater than 30 (Time spent in direct patient care, greater than 50% of which was spent in [id number] counseling and coordination of care: 35 minutes.)
[2019-03-27 11:16] LABS: Glucose,Whole Blood 124 mg/dL (75-99)
--- NOTE | 2019-03-27 11:33 | P.PN ---
Subjective 80-year-old pleasant female was admitted secondary dysphagia without any weakness. Sensory symptoms. Patient is found to havestroke in the left par ietal lobe super lateral side of face involving the temporal area as well which explains his symptoms this is a middle cerebral artery to her today. Neurology evaluated the patient is recommending aspirin and Plavix for the 2 months followed by just aspirin and a statin. Patient need to be discharged to subacute rehabilitation where everything her insurance prior authorization patient had normal ejection fraction the past. Constitutional: Denied any fatigue denied any fever. Cardio vascular: denied any chest pain, palpitations Gastrointestinal denied any nausea vomiting Pulmonary: Denied any shortness of breath cough Neurologic denied any new focal deficits All inpatient medications were reviewed and appropriate changes in these medications as dictated in the interval history and assessment and plan. Objective - Vital Signs Vital signs: Vital Signs Temp 98.3 F 03/26/19 20:00 Pulse 57 L 03/27/19 04:00 Resp 16 03/27/19 04:00 BP 168/90 03/27/19 04:00 Pulse Ox 96 03/27/19 04:00 Intake & Output 03/26/19 03/27/19 03/27/19 18:59 06:59 18:59 Intake Total 358 550 30 Output Total 200 Balance 158 550 30 Weight 43.9 kg Intake: Intake, IV Titration 550 Amount Sodium Chloride 0.9% 1, 550 000 ml @ 100 mls/hr IV . Q10H [facility] Rx#:[id number] Oral 358 30 Output: Urine 200 Other: Voiding Method Bedside Commode Toilet # Voids 1 1 # Bowel Movements 1 - Exam PHYSICAL EXAMINATION: GENERAL: The patient is alert and oriented x3, not in any acute distress. Well developed, well nourished. HEENT: Pupils are round and equally reacting to light. EOMI. No scleral icterus. No conjunctival pallor. Normocephalic, atraumatic. No pharyngeal erythema. No thyromegaly. CARDIOVASCULAR: S1 and S2 present. No murmurs, rubs, or gallops. PULMONARY: Chest is clear to auscultation, no wheezing or crackles. ABDOMEN: Soft, nontender, nondistended, normoactive bowel sounds. No palpable organomegaly. MUSCULOSKELETAL: No joint swelling or deformity. EXTREMITIES: No cyanosis, clubbing, or pedal edema. NEUROLOGICAL: Gross neurological examination did not reveal any focal deficits. use to have speech abnormalities with minimal improvement SKIN: No rashes. - Labs CBC & Chem 7: 03/27/19 05:39 03/27/19 05:39 Labs: Abnormal Lab Results - Last 24 Hours (Table) 03/26/19 03/26/19 03/26/19 Range/Units 12:26 16:49 21:09 RBC (3.80-5.40) m/uL Hgb (11.4-16.0) gm/dL Hct (34.0-46.0) % Sodium (137-145) mmol/L Carbon Dioxide (22-30) mmol/L BUN (7-17) mg/dL Glucose (74-99) mg/dL POC Glucose (mg/dL) 302 H 128 H 217 H (75-99) mg/dL 03/27/19 03/27/19 03/27/19 Range/Units 05:39 05:39 06:24 RBC 3.36 L (3.80-5.40) m/uL Hgb 10.4 L (11.4-16.0) gm/dL Hct 32.0 L (34.0-46.0) % Sodium 132 L (137-145) mmol/L Carbon Dioxide 21 L (22-30) mmol/L BUN 24 H (7-17) mg/dL Glucose 166 H (74-99) mg/dL POC Glucose (mg/dL) 178 H (75-99) mg/dL 03/27/19 Range/Units 11:15 RBC (3.80-5.40) m/uL Hgb (11.4-16.0) gm/dL Hct (34.0-46.0) % Sodium (137-145) mmol/L Carbon Dioxide (22-30) mmol/L BUN (7-17) mg/dL Glucose (74-99) mg/dL POC Glucose (mg/dL) 124 H (75-99) mg/dL Assessment and Plan Plan: -several vascular accident involving the after(the temporal areas for lateral surface postcentral gyrus supplied by him on branch of the middle cerebral artery , dual antiplatelet therapy as mentioned above as recommended by neurology and a statin. -Hyponatremia secondary to Lasix which will be discontinued patient doesn't have any evidence of congestive heart failure not in heart failure exacerbation.is no evidence of systolic or diastolic dysfunction -coronary artery disease -Type 2 diabetes mellitus hyperlipidemia -Hypertension have an acute renal failure improved now with IV fluids is will be continued.
[2019-03-27 13:12] VITALS: BMI 18.8
[2019-03-27 16:13] LABS: Glucose,Whole Blood 129 mg/dL (75-99)
[2019-03-27] MEDS: predniSONE 20 MG TAB PO SCH (19:11)
[2019-03-27] MEDS: PANTOPRAZOLE 40 MG TABLET PO SCH (20:24)
[2019-03-27] MEDS: ATORVASTATIN 80 MG TAB PO SCH (20:24)
[2019-03-27 21:00] LABS: Glucose,Whole Blood 172 mg/dL (75-99)
[2019-03-28] MEDS: SODIUM CHLORIDE 0.9% 1,000 ML IV SCH ×2 (06:27→15:06)
[2019-03-28] MEDS: INSULIN ASPART (NovoLOG) 100 UNIT/ML VIAL SQ SCH ×2 (06:29→12:01)
[2019-03-28 06:30] LABS: Glucose,Whole Blood 106 mg/dL (75-99)
[2019-03-28] MEDS: LEVOTHYROXINE 75 MCG TAB PO SCH (06:34)
[2019-03-28] MEDS: amLODIPine 5 MG TAB PO SCH (08:42)
[2019-03-28] MEDS: CALCIUM CARB-VIT D 500MG-200UN 1 EACH TAB PO SCH (08:42)
[2019-03-28] MEDS: CLOPIDOGREL 75 MG TAB PO SCH (08:42)
[2019-03-28] MEDS: MULTIVITAMINS, THERA 1 EACH TAB PO SCH (08:42)
[2019-03-28] MEDS: METOPROLOL TARTRATE 50 MG TAB PO SCH (08:42)
[2019-03-28] MEDS: ASCORBIC ACID 500 MG TAB PO SCH (08:42)
[2019-03-28] MEDS: FERROUS SULFATE 325 MG TAB PO SCH (08:42)
[2019-03-28] MEDS: ASPIRIN 81 MG PO SCH (08:42)
[2019-03-28 08:55] VITALS: RESP 17
[2019-03-28 09:13] LABS: Calcium 7.9 mg/dL (8.4-10.2); Potassium 3.6 mmol/L (3.5-5.1)
--- NOTE | 2019-03-28 09:45 | P.PN ---
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 PT/OT/SP per protocol. Patient with aphasia and cannot provide meaningful history. Objective - Vital Signs Vital signs: Vital Signs Temp 97.7 F 03/28/19 08:00 Pulse 51 L 03/28/19 08:00 Resp 17 03/28/19 08:00 BP 142/66 03/28/19 08:00 Pulse Ox 100 03/28/19 08:00 Intake & Output 03/27/19 03/28/19 03/28/19 18:59 06:59 18:59 Intake Total 110 400 480 Balance 110 400 480 Weight 43.9 kg 43.6 kg Intake: Intake, IV Titration 400 Amount Sodium Chloride 0.9% 1, 400 000 ml @ 100 mls/hr IV . Q10H [facility] Rx#:[id number] Oral 110 480 Other: Voiding Method Toilet Toilet # Voids 3 1 - Exam MS Awake and alert oriented to self only Mostly non-sensical speech with receptive>expressive aphasia Able to open and close eyes on command but has difficulty following other commands CN II-XII grossly intact no nystagmus Motor Normal bulk Bilateral paratonia RAPHAEL x4 Sens Intact to LT x4 No neglect Coord Not tested DTRs 2+/4 sym throughout Gait Deferred NIHSS 4 2- orientation 2-severe aphasia - Labs CBC & Chem 7: 03/27/19 05:39 03/28/19 08:07 Labs: Abnormal Lab Results - Last 24 Hours (Table) 03/27/19 03/27/19 03/27/19 Range/Units 11:15 16:12 20:59 Sodium (137-145) mmol/L BUN (7-17) mg/dL Glucose (74-99) mg/dL POC Glucose (mg/dL) 124 H 129 H 172 H (75-99) mg/dL Calcium (8.4-10.2) mg/dL 03/28/19 03/28/19 Range/Units 06:29 08:07 Sodium 134 L (137-145) mmol/L BUN 22 H (7-17) mg/dL Glucose 120 H (74-99) mg/dL POC Glucose (mg/dL) 106 H (75-99) mg/dL Calcium 7.9 L (8.4-10.2) mg/dL Assessment and Plan Assessment: 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 Etiology intracranial atherosclerosis vs proximal embolic phenomenon. 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 Possible 3mm acomm aneurysm, incidental finding. Plan: -Patient remains neurologically unchanged. Can treat BP as primary team sees fit. -Since she does have left distal M1 stenosis, I am concerned about symptomatic large vessel disease. Based on [facility] would recommend aspirin 81mg po qd and clopidogrel 75mg 81mg po qd for 90 days, after which can de-escalate to clopidogrel 75mg po qd only. -hga1c <7.0 at goal. -LDL 70 at goal. Continue statin therapy. -Patient does have moderate LAE. To complete her stroke work-up, would recommend 30-day cardiac event monitoring. Spoke with nursing staff 2 days ago who will facilitate setting up cardiac follow-up after discharge. -PT/OT/SP per stroke protocol. -Unfortunately, prognosis will depend on her future ability's to participate in rehabilitation. If she cannot understand enough, it will be harder for her to make significant gains. -Possible 3mm acomm aneurysm. This is an incidental finding and unlikely to explain her CVA. Given its small size and advanced age, treatment is conservative. At times, aneurysms may lead to [id number] phenomenon that is treated with antiplatelet, which the patient already takes. -DVT prophylaxis. -Dr. Peterson is on-call this weekend. Please call with ?. Thank you. Time with Patient: Less than 30 (Time spent in direct patient care, greater than 50% of which was spent in [id number] counseling and coordination of care: 25 minutes.)
[2019-03-28 11:59] LABS: Glucose,Whole Blood 169 mg/dL (75-99)
[2019-03-28 13:00] VITALS: BP 154/67; PULSE 50; TEMP 97.6
--- NOTE | 2019-03-28 13:10 | P.DS ---
Providers Date of admission: 03/25/19 18:23 Attending physician: Shawnee Obando Consults: 03/26/19 07:36 Consult Physician Routine Consulting Provider: Gemma Mcqueen Consult Reason/Comments: CVA Do you want consulting provider notified?: Yes Primary care physician: Giovanni Morningside Hospital Course: 80-year-old pleasant female was admitted secondary dysphagia without any weakness. Sensory symptoms. Patient is found to havestroke in the left parietal lobe super lateral side of face involving the temporal area as well which explains his symptoms this is a middle cerebral artery to her today. Neurology evaluated the patient is recommending aspirin and Plavix for the 2 months followed by just aspirin and a statin. Patient need to be discharged to subacute rehabilitation where everything her insurance prior authorization patient had normal ejection fraction the past. 03/28/2019 Patient is clinically doing well no significant overnight events patient will be discharged to subacute rehabilitation. Patient's speech appears to have improved minimally. PHYSICAL EXAMINATION: GENERAL: The patient is alert and oriented x3, not in any acute distress. Well developed, well nourished. HEENT: Pupils are round and equally reacting to light. EOMI. No scleral icterus. No conjunctival pallor. Normocephalic, atraumatic. No pharyngeal erythema. No thyromegaly. CARDIOVASCULAR: S1 and S2 present. No murmurs, rubs, or gallops. PULMONARY: Chest is clear to auscultation, no wheezing or crackles. ABDOMEN: Soft, nontender, nondistended, normoactive bowel sounds. No palpable organomegaly. MUSCULOSKELETAL: No joint swelling or deformity. EXTREMITIES: No cyanosis, clubbing, or pedal edema. NEUROLOGICAL: Gross neurological examination did not reveal any focal deficits. use to have speech abnormalities with minimal improvement SKIN: No rashes. Assessment and Plan Plan: -several vascular accident involving Perito-temporal areas for lateral surface postcentral gyrus supplied by him on branch of the middle cerebral artery , dual antiplatelet therapy as mentioned above as recommended by neurology and a statin. -Hyponatremia secondary to Lasix which will be discontinued patient doesn't have any evidence of congestive heart failure not in heart failure exacerbation.is no evidence of systolic or diastolic dysfunction -coronary artery disease -Type 2 diabetes mellitus hyperlipidemia -Hypertension Patient Condition at Discharge: Fair Plan - Discharge Summary New Discharge Prescriptions: New Atorvastatin [Lipitor] 40 mg PO HS tab Ranitidine HCl [Zantac] 150 mg PO BID #30 tab Metoprolol Tartrate [Lopressor] 25 mg PO BID tab Continue Levothyroxine Sodium [Levoxyl] 75 mcg PO QAM Simvastatin 10 mg PO HS rOPINIRole HCL 0.5 mg PO HS amLODIPine BESYLATE [Amlodipine Besylate] 5 mg PO QAM Aspirin 81 mg PO DAILY Calcium Carbonate/Vitamin D3 [Calcium 600-Vit D3 400 Tablet] 1 cap PO DAILY Cinnamon Bark [Cinnamon] 1,000 mg PO HS Ascorbic Acid [Vitamin C] 500 mg PO DAILY [place]-3 Fatty Acids/Fish Oil [Fish Oil 1,000 mg Softgel] 1 cap PO DAILY Multivitamin with Iron [Daily Multivitamin with Iron] 1 tab PO DAILY Ergocalciferol [Vitamin D2 (DRISDOL)] 50,000 unit PO QMONTH Ferrous Sulfate [Iron (65 MG Elemental)] 325 mg PO DAILY Albuterol Inhaler [Ventolin Hfa Inhaler] 1 - 2 puff INHALATION RT-Q6H PRN #1 inhaler PRN Reason: Shortness Of Breath glipiZIDE [Glucotrol] 10 mg Discontinued Metoprolol Tartrate 50 mg PO BID Omeprazole 20 mg PO HS Furosemide [Lasix] 20 mg PO QAM ALPRAZolam [Xanax] 0.5 mg PO DAILY PRN PRN Reason: Anxiety predniSONE See Taper PO W/SUPPER Discharge Medication List Ascorbic Acid [Vitamin C] 500 mg PO DAILY 03/23/15 [History] Aspirin 81 mg PO DAILY 03/23/15 [History] Calcium Carbonate/Vitamin D3 [Calcium 600-Vit D3 400 Tablet] 1 cap PO DAILY 03/23/15 [History] Cinnamon Bark [Cinnamon] 1,000 mg PO HS 03/23/15 [History] Levothyroxine Sodium [Levoxyl] 75 mcg PO QAM 03/23/15 [History] Multivitamin with Iron [Daily Multivitamin with Iron] 1 tab PO DAILY 03/23/15 [History] [place]-3 Fatty Acids/Fish Oil [Fish Oil 1,000 mg Softgel] 1 cap PO DAILY 03/23/15 [History] Simvastatin 10 mg PO HS 03/23/15 [History] amLODIPine BESYLATE [Amlodipine Besylate] 5 mg PO QAM 03/23/15 [History] rOPINIRole HCL 0.5 mg PO HS 03/23/15 [History] Ergocalciferol [Vitamin D2 (DRISDOL)] 50,000 unit PO QMONTH 04/06/16 [History] Ferrous Sulfate [Iron (65 MG Elemental)] 325 mg PO DAILY 04/06/16 [History] Albuterol Inhaler [Ventolin Hfa Inhaler] 1 - 2 puff INHALATION RT-Q6H PRN #1 inhaler 03/18/19 [Rx] glipiZIDE [Glucotrol] 10 mg 03/26/19 [History] Atorvastatin [Lipitor] 40 mg PO HS tab 03/28/19 [Rx] Metoprolol Tartrate [Lopressor] 25 mg PO BID tab 03/28/19 [Rx] Ranitidine HCl [Zantac] 150 mg PO BID #30 tab 03/28/19 [Rx] Follow up Appointment(s)/Referral(s): Cyrus Cantu MD [REFERRING] - 1-2 Days Keith Treviño MD [STAFF PHYSICIAN] - 3 Days (follow up for 30 day event monitor) Giovanni Luke MD [Primary Care Provider] - 3 Days Activity/Diet/Wound Care/Special Instructions: [facility] care
[2019-03-28] MEDS ORDERED: predniSONE 10 MG TAB PO SCH (17:30)
[2019-04-12] MEDS ORDERED: ERGOCALCIFEROL 50,000 UNIT CAP PO SCH (09:00)
== END 2019-03-28 14:48 | DRG 65 ==
LOC: EC 14:04 → 3SCARD 18:23
PROVIDERS: ADMIT Hospitalist; ATTEND Hospitalist
PROC: B030ZZZ Magnetic Resonance Imaging (MRI) of Brain (ICD-10-PCS; principal; 2019-03-26)
DX: I63.419 Cerebral infarction due to embolism of unspecified middle cerebral artery (principal); E87.1 Hypo-osmolality and hyponatremia; N18.3 Chronic kidney disease, stage 3 (moderate); R47.01 Aphasia; I10 Essential (primary) hypertension; E11.22 Type 2 diabetes mellitus with diabetic chronic kidney disease; E11.51 Type 2 diabetes mellitus with diabetic peripheral angiopathy without gangrene; F03.90 Unspecified dementia, unspecified severity, without behavioral disturbance, psychotic disturbance, mood disturbance, and anxiety; E03.9 Hypothyroidism, unspecified; E78.5 Hyperlipidemia, unspecified; R13.10 Dysphagia, unspecified; R29.704 NIHSS score 4; R40.2143 Coma scale, eyes open, spontaneous, at hospital admission; R40.2363 Coma scale, best motor response, obeys commands, at hospital admission; R40.2253 Coma scale, best verbal response, oriented, at hospital admission; R41.0 Disorientation, unspecified; G25.81 Restless legs syndrome; M19.90 Unspecified osteoarthritis, unspecified site; T50.1X5A Adverse effect of loop [high-ceiling] diuretics, initial encounter; Z96.643 Presence of artificial hip joint, bilateral; M54.30 Sciatica, unspecified side; I25.10 Atherosclerotic heart disease of native coronary artery without angina pectoris; Z79.82 Long term (current) use of aspirin; Z79.899 Other long term (current) drug therapy; Z79.890 Hormone replacement therapy; Z85.828 Personal history of other malignant neoplasm of skin; Z95.5 Presence of coronary angioplasty implant and graft; Z90.710 Acquired absence of both cervix and uterus; Z82.3 Family history of stroke; Z88.1 Allergy status to other antibiotic agents; Z88.5 Allergy status to narcotic agent; Z88.6 Allergy status to analgesic agent; Z91.09 Other allergy status, other than to drugs and biological substances
CPT/HCPCS: 36415; 70450; 70496; 70498; 70551; 71046; 80048; 80053; 80061; 81001; 81003; 84484; 85025; 85027; 85610; 85730; 93005; 94760; 96360; 96361; 99285